=== PATIENT | female | born 1955 | race Caucasian/White ===

== ENCOUNTER 2016-05-14 09:26 | Emergency (ER) | payer BC ==
[2016-05-14 09:37] VITALS: BP 96/56
--- NOTE | 2016-05-14 10:10 | EDM.PDOC ---
ED HPI Trauma - General Chief Complaint: Upper Extremity Injury/Pain Stated Complaint: BROKEN LEFT ARM FELL AT HOME Time Seen by Provider: 05/14/16 10:00 Source: Reports: Patient History Limitations: Reports: No limitations - History of Present Illness INITIAL COMMENTS - FREE TEXT/NARRATIVE: This 60 yo female patient reports to the ED with left wrist pain due to a fall last Thursday (5 days ago). The patient reports she has been icing and immobilizing the area, but has continued to have pain in the left wrist and forearm. The patient has not been seen for these symptoms, but reports she has been having a little more pain over the past 24 hours. The patient reports a history of frequent falls due to orthostatic hypotension. The patient reports she has been seen for this numerous times in the past. At this time, the patient has no additional symptoms or concerns. Symptom Onset Date: 05/09/16 Occurred When: last week Occurred Where: home Method of Injury: fall Severity: moderate Pain/Injury Location: Reports: upper extremity, left Consciousness: Reports: no loss of consciousness Associated Symptoms: Reports: no other symptoms Allergies/ADRs: Allergies erythromycin base [Erythromycin Base] Allergy (Unknown, Verified 05/14/16 09:38) Rash azithromycin [From Zithromax] Allergy (Verified 05/14/16 09:38) Cannot Remember candesartan cilexetil [From Atacand] Allergy (Verified 05/14/16 09:38) Dizziness doxycycline Allergy (Verified 05/14/16 09:38) Cannot Remember heparin Allergy (Verified 05/14/16 09:38) Shortness of Breath levofloxacin [From Levaquin] Allergy (Verified 05/14/16 09:38) Rash developed rash two weeks post ingestion. Penicillins Allergy (Verified 05/14/16 09:38) Rash prochlorperazine Allergy (Verified 05/14/16 09:38) Hallucinations prochlorperazine edisylate [From Compazine] Allergy (Verified 05/14/16 09:38) Hallucinations prochlorperazine maleate [From Compazine] Allergy (Verified 05/14/16 09:38) Hallucinations sumatriptan Allergy (Verified 10/01/15 06:09) Other Home Medications: Ambulatory Orders Insulin Detemir [Levemir] 16 units SUBCUT BID 05/11/13 [Confirmed 05/14/16] Rosuvastatin Calcium [Crestor] 20 mg PO DAILY 05/11/13 [Confirmed 05/14/16] Aspirin [Adult Low Dose Aspirin EC] 81 mg PO DAILY 07/23/13 [Confirmed 05/14/16] Butorphanol [Stadol NS] 1 spray DALE TID PRN 07/24/13 [Confirmed 05/14/16] Folic Acid 1 mg PO DAILY 08/12/15 [Confirmed 05/14/16] Insulin Aspart [Novolog Flexpen] 4 - 6 units SQ TIDMEALS 08/12/15 [Confirmed ] Fludrocortisone [Florinef] 0.2 mg PO BRK 10/01/15 [Confirmed 05/14/16] Metoprolol Tartrate [Lopressor] 12.5 mg PO Q12HR 10/01/15 [Confirmed 05/14/16] Midodrine 10 mg PO TID 10/01/15 [Confirmed 05/14/16] Potassium Chloride [Klor-Con 10] 20 meq PO DAILY PRN 10/01/15 [Confirmed ] Sodium Chloride 1 gm PO TID PRN 10/01/15 [Confirmed 05/14/16] diphenhydrAMINE [Benadryl] 25 mg PO ASDIRECTED PRN 10/01/15 [Confirmed 05/14/16] Albuterol [Proventil HFA] 2 puff INH ASDIRECTED PRN 05/14/16 [Confirmed 05/14/16 ] Cholecalciferol (Vitamin D3) [Vitamin D] 50,000 unit PO WEEKLY 05/14/16 [ Confirmed 05/14/16] Fexofenadine/Pseudoephedrine [Tali-D 24 Hour Tablet] 1 tab PO DAILY PRN 05/14 [Confirmed 05/14/16] Glycerin/Propylene Glycol [Artificial Tears Drops] 1 drop OP DAILY 05/14/16 [ Confirmed 05/14/16] Levothyroxine 12.5 mcg PO ACBREAKFAST 05/14/16 [Confirmed 05/14/16] Promethazine [Phenadoz] 25 mg RECTAL Q6H PRN 05/14/16 [Confirmed 05/14/16] Sennosides/Docusate Sodium [Senna-Docusate Sodium Tablet] 2 tab PO DAILY [Confirmed 05/14/16] traZODone HCl [Trazodone HCl] 100 mg PO BEDTIME 05/14/16 [Confirmed 05/14/16] Past Medical History HEENT History: Reports: Hard of hearing, Impaired vision, Other (see below) Other HEENT History: wears glasses Cardiovascular History: Reports: High cholesterol Other Cardiovascular History: orthostatic hypotension/alternates with hypertension Respiratory History: Reports: Asthma Gastrointestinal History: Reports: Chronic constipation Genitourinary History: Reports: None 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 Musculoskeletal History: Reports: Fracture Neurological History: Reports: Migraines, Neuropathy, diabetic Psychiatric History: Reports: None Endocrine/Metabolic History: Reports: Diabetes, type I, IDDM Hematologic History: Reports: None Immunologic History: Reports: None Oncologic (Cancer) History: Reports: None Dermatologic History: Reports: Psoriasis - Infectious Disease History Infectious Disease History: Reports: Chicken pox - Past Surgical History GI Surgical History: Reports: Appendectomy, Cholecystectomy Female Surgical History: Reports: section, D&C, Hysterectomy Social & Family History - Family History Family Medical History: Noncontributory - Tobacco Use Smoking Status *Q: Never Smoker Second Hand Smoke Exposure: No - Caffeine Use Caffeine Use: Reports: Coffee - Alcohol Use Days Per Week of Alcohol Use: 0 Number of Drinks Per Day: 0 Total Drinks Per Week: 0 - Recreational Drug Use Recreational Drug Use: No - Living Situation & Occupation Living situation: Reports: , with family Review of Systems - Review of Systems Review Of Systems: ROS reveals no pertinent complaints other than HPI. Trauma Exam - Physical Exam Exam: See Below Exam Limited By: No limitations General Appearance: Reports: alert, WD/WN, mild distress Head: Reports: atraumatic, normocephalic Eyes: bilateral eye: EOMI, normal inspection, PERRL Ears: Reports: normal external exam, normal canal, hearing grossly normal, normal TMs Nose: Reports: normal inspection, normal mucousa, no blood Throat/Mouth: Reports: Normal inspection, Normal lips, Normal teeth, Normal gums , Normal oropharynx, Normal voice, No airway compromise Neck: Reports: non-tender, full range of motion, normal alignment, normal inspection Respiratory Exam: Reports: no respiratory distress, lungs clear, normal breath sounds Cardiovascular: Reports: normal peripheral pulses, regular rate, rhythm, no edema, no gallop, no JVD, no murmur, no rub GI/Abdominal: Reports: normal bowel sounds, soft, non tender, no organomegaly, no distention, no abnormal bruit, no mass (Female) Exam: Deferred Rectal (Female) Exam: Deferred Extremities: Reports: pain with movement (left wrist), tenderness (snuff box tenderness left wrist) 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, no motor/sensory deficits, alert , normal mood/affect, oriented x 3 Skin: Reports: Warm/dry - Akash Coma Score Best Eye Response ([place]): (4) open spontaneously Best Verbal Response ([place]): (5) oriented Best Motor Response ([place]): (6) obeys commands [place] Total: 15 Course - Vital Signs Last Recorded V/S: Last Vital Signs Temp 35.3 C 05/14/16 09:32 Pulse 116 H 05/14/16 09:32 Resp 16 05/14/16 09:32 BP 96/56 L 05/14/16 09:32 Pulse Ox 99 05/14/16 09:32 Departure - Departure Time of Disposition: 10:46 Disposition: Home, Self-Care 01 Condition: fair Clinical Impression: Left wrist sprain Qualifiers: Encounter type: initial encounter Qualified Code(s): S63.502A - Unspecified sprain of left wrist, initial encounter Instructions: Wrist Pain, [id number] Forms: ED Department Discharge Care Plan Goals: The patient was advised of the examination and x-ray results during the visit. The patient was encouraged to continue to immobilize her left wrist. If the patient has any additional symptoms or concerns, the patient should follow-up with her primary care facility or return to the emergency department.
== END 2016-05-14 11:00 | disposition home or self-care (01) ==
LOC: DL.ED 09:26
DX: S63.502A Unspecified sprain of left wrist, initial encounter (principal); E78.00 Pure hypercholesterolemia, unspecified; G43.909 Migraine, unspecified, not intractable, without status migrainosus; L40.9 Psoriasis, unspecified; Z88.8 Allergy status to other drugs, medicaments and biological substances; Z79.899 Other long term (current) drug therapy; Z90.49 Acquired absence of other specified parts of digestive tract; W19.XXXA Unspecified fall, initial encounter
CPT/HCPCS: 73090-LT; 73110-LT; 99284

== ENCOUNTER 2017-02-24 10:20 | Emergency (ER) | payer BC ==
--- NOTE | 2017-02-24 10:29 | EDM.PDOC ---
ED HPI GENERAL MEDICAL PROBLEM - General Chief Complaint: Gastrointestinal Problem Stated Complaint: [id number] TYPE ON DIABETIC DEHYDRATION HAS FLU Time Seen by Provider: 02/24/17 10:29 Source of Information: Reports: Patient, Family, Old Records, RN, RN Notes Reviewed History Limitations: Reports: No Limitations - History of Present Illness INITIAL COMMENTS - FREE TEXT/NARRATIVE: Arrives from home by POV with c/o intractable N/V and high blood sugar. Denies pain. Pt feels very weak and believes she may be in DKA. Denies fever or chills. Onset: Today Duration: Constant, Getting Worse Location: Reports: Generalized Severity: Severe Improves with: Reports: None Worsens with: Reports: None Associated Symptoms: Reports: No Other Symptoms Generalized Pain Score (Numeric/FACES): 6 - Related Data Allergies Allergy/AdvReac Type Severity Reaction Status Date / Time erythromycin base Allergy Unknown Rash Verified 02/24/17 10:29 [Erythromycin Base] azithromycin [From Zithromax] Allergy Cannot Verified 02/24/17 10:29 Remember candesartan cilexetil Allergy Dizziness Verified 02/24/17 10:29 [From Atacand] doxycycline Allergy Cannot Verified 02/24/17 10:29 Remember heparin Allergy Shortness Verified 02/24/17 10:29 of Breath levofloxacin [From Levaquin] Allergy Rash Verified 02/24/17 10:29 Penicillins Allergy Rash Verified 02/24/17 10:29 prochlorperazine Allergy Hallucinati Verified 02/24/17 10:29 ons prochlorperazine edisylate Allergy Hallucinati Verified 02/24/17 10:29 [From Compazine] ons prochlorperazine maleate Allergy Hallucinati Verified 02/24/17 10:29 [From Compazine] ons sumatriptan Allergy Other Verified 02/24/17 10:29 Home Meds: Home Meds Insulin Detemir [Levemir] 16 units SUBCUT BID 05/11/13 [History] Rosuvastatin Calcium [Crestor] 20 mg PO DAILY 05/11/13 [History] Aspirin [Adult Low Dose Aspirin EC] 81 mg PO DAILY 07/23/13 [History] Butorphanol [Stadol NS] 1 spray DALE TID PRN 07/24/13 [History] Folic Acid 1 mg PO DAILY 08/12/15 [History] Insulin Aspart [Novolog Flexpen] 4 - 6 units SQ TIDMEALS 08/12/15 [History] Fludrocortisone [Florinef] 0.2 mg PO BRK 10/01/15 [History] Metoprolol Tartrate [Lopressor] 12.5 mg PO Q12HR 10/01/15 [History] Midodrine 10 mg PO TID 10/01/15 [History] Potassium Chloride [Klor-Con 10] 20 meq PO DAILY PRN 10/01/15 [History] Sodium Chloride 1 gm PO TID PRN 10/01/15 [History] diphenhydrAMINE [Benadryl] 25 mg PO ASDIRECTED PRN 10/01/15 [History] Albuterol [Proventil HFA] 2 puff INH ASDIRECTED PRN 05/14/16 [History] Cholecalciferol (Vitamin D3) [Vitamin D] 50,000 unit PO WEEKLY 05/14/16 [History ] Fexofenadine/Pseudoephedrine [Tali-D 24 Hour Tablet] 1 tab PO DAILY PRN 05/14 [History] Glycerin/Propylene Glycol [Artificial Tears Drops] 1 drop OP DAILY 05/14/16 [ History] Levothyroxine 12.5 mcg PO ACBREAKFAST 05/14/16 [History] Promethazine [Phenadoz] 25 mg RECTAL Q6H PRN 05/14/16 [History] Sennosides/Docusate Sodium [Senna-Docusate Sodium Tablet] 2 tab PO DAILY [History] traZODone HCl [Trazodone HCl] 100 mg PO BEDTIME 05/14/16 [History] Past Medical History HEENT History: Reports: Hard of Hearing, Impaired Vision, Other (See Below) Other HEENT History: wears glasses Cardiovascular History: Reports: High Cholesterol Other Cardiovascular History: orthostatic hypotension/alternates with hypertension Respiratory History: Reports: Asthma Gastrointestinal History: Reports: Chronic Constipation Genitourinary History: Reports: None 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 Musculoskeletal History: Reports: Fracture Neurological History: Reports: Migraines, Neuropathy, Diabetic Psychiatric History: Reports: None Endocrine/Metabolic History: Reports: Diabetes, Type I, IDDM Hematologic History: Reports: None Immunologic History: Reports: None Oncologic (Cancer) History: Reports: None Dermatologic History: Reports: Psoriasis - Infectious Disease History Infectious Disease History: Reports: Chicken Pox - Past Surgical History HEENT Surgical History: Reports: Other (See Below) Female Surgical History: Reports: Section, D&C, Hysterectomy Social & Family History - Family History Family Medical History: Noncontributory - Tobacco Use Smoking Status *Q: Never Smoker Second Hand Smoke Exposure: No - Caffeine Use Caffeine Use: Reports: Coffee - Alcohol Use Days Per Week of Alcohol Use: 0 Number of Drinks Per Day: 0 Total Drinks Per Week: 0 - Recreational Drug Use Recreational Drug Use: No - Living Situation & Occupation Living situation: Reports: , with Family ED ROS GENERAL - Review of Systems Review Of Systems: ROS reveals no pertinent complaints other than HPI. ED EXAM GENERAL NO PERIP PULSE - Physical Exam Exam: See Below Exam Limited By: No Limitations General Appearance: Alert, No Apparent Distress, Other (acutely ill appearing) Eye Exam: Bilateral Eye: Normal Inspection Nose: Normal Inspection, Normal Mucosa, No Blood Throat/Mouth: Normal Lips, Normal Oropharynx, Normal Voice, No Airway Compromise , Other (dry oral membranes) Head: Atraumatic, Normocephalic Neck: Normal Inspection, Supple, Non-Tender, Full Range of Motion Respiratory/Chest: No Respiratory Distress, Lungs Clear, Normal Breath Sounds, No Accessory Muscle Use, Chest Non-Tender Cardiovascular: Regular Rate, Rhythm, Tachycardia GI/Abdominal: Normal Bowel Sounds, Soft, Non-Tender, No Distention, No Abnormal Bruit (Female) Exam: Deferred Rectal (Female) Exam: Deferred Back Exam: Normal Inspection Extremities: Normal Inspection, Normal Range of Motion, Non-Tender, Normal Capillary Refill, No Pedal Edema Neurological: Alert, Oriented, CN II-XII Intact, Normal Cognition, No Motor/ Sensory Deficits, Other (generalized weakness) Psychiatric: Normal Affect, Normal Mood Skin Exam: Warm, Dry, Intact, Normal Color, No Rash EKG INTERPRETATION EKG Date: 02/24/17 Time: 11:03 Rhythm: Other (Sinus tach.) Rate (Beats/Min): 114 [place]: Normal P-Wave: Present QRS: Normal ST-T: Other (non-specific T-wave abnormalities) QT: Normal Comparison: No Change Course - Vital Signs Last Recorded V/S: Last Vital Signs Temp 36.3 C 02/24/17 10:33 Pulse 110 H 02/24/17 10:33 Resp 16 02/24/17 10:33 BP 124/49 L 02/24/17 10:33 Pulse Ox 100 02/24/17 10:33 - Orders/Labs/Meds Orders: Active Orders 24 hr Category Date Time Status Blood Glucose Check, Bedside [RC] ONETIME Care 02/24/17 10:48 Active EKG 12 Lead [EKG Documentation Completion] [RC] STAT Care 02/24/17 10:46 Active Peripheral IV Care [RC] . DIRECTED Care 02/24/17 10:47 Active Chest 1V Frontal [CR] Stat Exams 02/24/17 10:46 Taken ABG [BLOOD GAS ARTERIAL] [BG] Stat Lab 02/24/17 10:29 Ordered CBC WITH AUTO DIFF [HEME] Stat Lab 02/24/17 10:52 Results CULTURE BLOOD [BC] Stat Lab 02/24/17 10:48 Ordered CULTURE BLOOD [BC] Stat Lab 02/24/17 10:58 Results CULTURE STREP A CONFIRMATION [RM] Stat Lab 02/24/17 10:42 Results INFLUENZA A+B AG SCREEN [RM] Stat Lab 02/24/17 10:43 Ordered MANUAL DIFFERENTIAL QA/NC [HEME] Stat Lab 02/24/17 10:52 Results STREP SCRN A RAPID W CULT CONF [RM] Stat Lab 02/24/17 10:42 Results UA W/MICROSCOPIC [URIN] Stat Lab 02/24/17 11:05 Results Insulin Regular, Human [HumuLIN R] 100 unit Med 02/24/17 11:30 Active Sodium Chloride 0.9% [Normal Saline] 99 ml IV TITRATE Sodium Chloride 0.9% [Normal Saline] 1,000 ml Med 02/24/17 10:48 Active IV .BOLUS Sodium Chloride 0.9% [Saline Flush] Med 02/24/17 10:46 Active 10 ml FLUSH ASDIRECTED PRN Blood Culture x2 Reflex Set [OM.PC] Stat Oth 02/24/17 10:48 Ordered Peripheral IV Insertion Adult [OM.PC] Stat Oth 02/24/17 10:46 Ordered Medication Orders Sodium Chloride (Normal Saline) 1,000 mls @ 999 mls/hr IV .BOLUS ONE Stop: 02/24/17 11:48 Last Admin: 02/24/17 11:10 Dose: 999 mls/hr Insulin Human Regular 100 unit (/ Sodium Chloride) 100 mls @ 0 mls/hr IV TITRATE COOKIE; 0.1 UNITS/KG/HR PRN Reason: Protocol Sodium Chloride (Saline Flush) 10 ml FLUSH ASDIRECTED PRN PRN Reason: Keep Vein Open Last Admin: 02/24/17 11:10 Dose: 10 ml Labs: Laboratory Tests 02/24/17 02/24/17 02/24/17 Range/Units 10:52 10:52 10:52 WBC 15.5 H (5.0-10.0) 10^3/uL RBC 3.53 L (4.2-5.4) 10^6/uL Hgb 11.4 L (12.0-16.0) g/dL Hct 36.4 L (37.0-47.0) % MCV 103.1 H (80-100) fL MCH 32.3 (27.0-34.0) pg MCHC 31.3 L (33.0-35.0) g/dL Plt Count 274 D (150-450) 10^3/uL Neut % (Auto) 77.1 H (42.2-75.2) % Lymph % (Auto) 12.4 L (20.5-50.1) % [place] % (Auto) 10.1 H (2-8) % Eos % (Auto) 0.2 L (1.0-3.0) % Baso % (Auto) 0.2 (0.0-1.0) % Add Manual Diff Yes Sodium 138 (135-145) mmol/L Potassium 4.0 (3.6-5.0) mmol/L Chloride 99 L (101-111) mmol/L Carbon Dioxide 7.0 L* D (21.0-31.0) mmol/L Anion Gap 36.0 BUN 39 H (7-18) mg/dL Creatinine 1.8 H (0.6-1.3) mg/dL Est Cr Clr Drug Dosing 31.50 mL/min Estimated GFR (MDRD) 29 BUN/Creatinine Ratio 21.66 Glucose 457 H* (74-105) mg/dL POC Glucose (70-105) mg/dl Lactic Acid (0.5-2.2) mmol/L Calcium 8.9 (8.4-10.2) mg/dl Phosphorus 7.8 H (2.5-4.6) mg/dL Magnesium 2.3 (1.8-2.5) mg/dL Total Bilirubin 2.1 H (0.2-1.0) mg/dL AST 43 H (10-42) IU/L ALT 25 (10-60) IU/L Alkaline Phosphatase 105 (42-121) IU/L Troponin I 0.04 H* (0.00-0.02) ng/ml Total Protein 6.6 L (6.7-8.2) g/dl Albumin 3.8 (3.2-5.5) g/dl Globulin 2.8 Albumin/Globulin Ratio 1.36 Amylase 107 H (28-100) U/L Lipase 12 L (22-51) U/L Urine Color (YELLOW) Urine Appearance (CLEAR) Urine pH (5.0-9.0) Ur Specific [place] (1.005-1.030) Urine Protein (NEGATIVE) Urine Glucose (UA) (NEGATIVE) Urine Ketones (NEGATIVE) Urine Occult Blood (NEGATIVE) Urine Nitrite (NEGATIVE) Urine Bilirubin (NEGATIVE) Urine Urobilinogen (0.2-1.0) mg/dL Ur Leukocyte Esterase (NEGATIVE) Ketones Positive 02/24/17 02/24/17 02/24/17 Range/Units 10:52 11:04 11:05 WBC (5.0-10.0) 10^3/uL RBC (4.2-5.4) 10^6/uL Hgb (12.0-16.0) g/dL Hct (37.0-47.0) % MCV (80-100) fL MCH (27.0-34.0) pg MCHC (33.0-35.0) g/dL Plt Count (150-450) 10^3/uL Neut % (Auto) (42.2-75.2) % Lymph % (Auto) (20.5-50.1) % [place] % (Auto) (2-8) % Eos % (Auto) (1.0-3.0) % Baso % (Auto) (0.0-1.0) % Add Manual Diff Sodium (135-145) mmol/L Potassium (3.6-5.0) mmol/L Chloride (101-111) mmol/L Carbon Dioxide (21.0-31.0) mmol/L Anion Gap BUN (7-18) mg/dL Creatinine (0.6-1.3) mg/dL Est Cr Clr Drug Dosing mL/min Estimated GFR (MDRD) BUN/Creatinine Ratio Glucose (74-105) mg/dL POC Glucose 363 H (70-105) mg/dl Lactic Acid 5.9 H (0.5-2.2) mmol/L Calcium (8.4-10.2) mg/dl Phosphorus (2.5-4.6) mg/dL Magnesium (1.8-2.5) mg/dL Total Bilirubin (0.2-1.0) mg/dL AST (10-42) IU/L ALT (10-60) IU/L Alkaline Phosphatase (42-121) IU/L Troponin I (0.00-0.02) ng/ml Total Protein (6.7-8.2) g/dl Albumin (3.2-5.5) g/dl Globulin Albumin/Globulin Ratio Amylase (28-100) U/L Lipase (22-51) U/L Urine Color Yellow (YELLOW) Urine Appearance Turbid (CLEAR) Urine pH 5.5 (5.0-9.0) Ur Specific [place] >= 1.030 (1.005-1.030) Urine Protein 100 H (NEGATIVE) Urine Glucose (UA) 250 H (NEGATIVE) Urine Ketones 80 H (NEGATIVE) Urine Occult Blood Moderate H (NEGATIVE) Urine Nitrite Negative (NEGATIVE) Urine Bilirubin Negative (NEGATIVE) Urine Urobilinogen 0.2 (0.2-1.0) mg/dL Ur Leukocyte Esterase Negative (NEGATIVE) Ketones Meds: Medications Generic Name Dose Route Start Last Admin Trade Name Freq PRN Reason Stop Dose Admin Sodium Chloride 1,000 mls @ 999 mls/hr 02/24/17 10:48 02/24/17 11:10 Normal Saline IV 02/24/17 11:48 999 mls/hr .BOLUS ONE Administration Insulin Human Regular 100 unit 100 mls @ 0 mls/hr 02/24/17 11:30 / Sodium Chloride IV TITRATE COOKIE Protocol 0.1 UNITS/KG/HR Sodium Chloride 10 ml 02/24/17 10:46 02/24/17 11:10 Saline Flush FLUSH 10 ml ASDIRECTED PRN Administration Keep Vein Open Discontinued Medications Generic Name Dose Route Start Last Admin Trade Name Freq PRN Reason Stop Dose Admin Insulin Human Regular 6 unit 02/24/17 11:23 02/24/17 11:34 Humulin R IV 02/24/17 11:24 6 unit ONETIME ONE Administration Protocol Ondansetron HCl 4 mg 02/24/17 10:48 02/24/17 11:10 Zofran IV 02/24/17 10:49 4 mg ONETIME ONE Administration Ondansetron HCl 4 mg 02/24/17 11:24 02/24/17 11:34 Zofran IV 02/24/17 11:25 4 mg ONETIME ONE Administration - Radiology Interpretation Free Text/Narrative:: CXR: no acute process, see Rad. report. Departure - Departure Time of Disposition: 11:39 Disposition: DC/Tfer to Acute Hospital 02 Condition: Critical Clinical Impression: Dehydration, Vomiting DKA, type 1 Qualifiers: Diabetes mellitus complication detail: without coma Qualified Code(s): E10.10 - Type 1 diabetes mellitus with ketoacidosis without coma - Discharge Information Forms: ED Department Discharge, Interfacility Transfer EMTALA - My Orders Last 24 Hours: My Active Orders 02/24/17 10:29 ABG [BLOOD GAS ARTERIAL] [BG] Stat 02/24/17 10:42 CULTURE STREP A CONFIRMATION [RM] Stat STREP SCRN A RAPID W CULT CONF [RM] Stat 02/24/17 10:43 INFLUENZA A+B AG SCREEN [RM] Stat 02/24/17 10:46 EKG 12 Lead [EKG Documentation Completion] [RC] STAT Chest 1V Frontal [CR] Stat Sodium Chloride 0.9% [Saline Flush] 10 ml FLUSH ASDIRECTED PRN Peripheral IV Insertion Adult [OM.PC] Stat 02/24/17 10:47 Peripheral IV Care [RC] . DIRECTED 02/24/17 10:48 Blood Glucose Check, Bedside [RC] ONETIME CULTURE BLOOD [BC] Stat Sodium Chloride 0.9% [Normal Saline] 1,000 ml IV .BOLUS Blood Culture x2 Reflex Set [OM.PC] Stat 02/24/17 10:52 CBC WITH AUTO DIFF [HEME] Stat MANUAL DIFFERENTIAL QA/NC [HEME] Stat 02/24/17 10:58 CULTURE BLOOD [BC] Stat 02/24/17 11:05 UA W/MICROSCOPIC [URIN] Stat 02/24/17 11:30 Insulin Regular, Human [HumuLIN R] 100 unit Sodium Chloride 0.9% [Normal Saline] 99 ml IV TITRATE - Assessment/Plan Last 24 Hours: My Active Orders 02/24/17 10:29 ABG [BLOOD GAS ARTERIAL] [BG] Stat 02/24/17 10:42 CULTURE STREP A CONFIRMATION [RM] Stat STREP SCRN A RAPID W CULT CONF [RM] Stat 02/24/17 10:43 INFLUENZA A+B AG SCREEN [RM] Stat 02/24/17 10:46 EKG 12 Lead [EKG Documentation Completion] [RC] STAT Chest 1V Frontal [CR] Stat Sodium Chloride 0.9% [Saline Flush] 10 ml FLUSH ASDIRECTED PRN Peripheral IV Insertion Adult [OM.PC] Stat 02/24/17 10:47 Peripheral IV Care [RC] . DIRECTED 02/24/17 10:48 Blood Glucose Check, Bedside [RC] ONETIME CULTURE BLOOD [BC] Stat Sodium Chloride 0.9% [Normal Saline] 1,000 ml IV .BOLUS Blood Culture x2 Reflex Set [OM.PC] Stat 02/24/17 10:52 CBC WITH AUTO DIFF [HEME] Stat MANUAL DIFFERENTIAL QA/NC [HEME] Stat 02/24/17 10:58 CULTURE BLOOD [BC] Stat 02/24/17 11:05 UA W/MICROSCOPIC [URIN] Stat 02/24/17 11:30 Insulin Regular, Human [HumuLIN R] 100 unit Sodium Chloride 0.9% [Normal Saline] 99 ml IV TITRATE
[2017-02-24 10:34] VITALS: BP 124/49
[2017-02-24] MEDS ORDERED: Sodium Chloride 0.9% 10 ML Syringe FLUSH PRN (10:46)
[2017-02-24] MEDS ORDERED: Ondansetron 4 MG/2 ML SDV IV ONE ×2 (10:48→11:24)
[2017-02-24] MEDS ORDERED: Sodium Chloride 0.9% 1,000 ML IV ONE (10:48)
[2017-02-24] MEDS ORDERED: Insulin Regular, Human 100 Units/ML 3 ML Vial IV ONE (11:23)
[2017-02-24 11:29] LABS: CHLORIDE,CL 99 mmol/L (101-111); SODIUM,NA 138 mmol/L (135-145)
--- NOTE | 2017-03-02 18:28 | EKG ---
02/24/2017 - [facility] - FINDINGS: This 12-lead EKG shows a sinus tachycardia with a ventricular rate of 114. Normal axis. Non-specific T-wave abnormalities in the lateral leads, possibly rate related. No acute ST-segment or T-wave changes. [facility] /[id number] MTDD
== END 2017-02-24 12:30 ==
LOC: DL.ED 10:20
DX: E86.0 Dehydration (principal); E10.10 Type 1 diabetes mellitus with ketoacidosis without coma; E10.40 Type 1 diabetes mellitus with diabetic neuropathy, unspecified; I10 Essential (primary) hypertension; E78.00 Pure hypercholesterolemia, unspecified; Z88.1 Allergy status to other antibiotic agents; Z88.0 Allergy status to penicillin; Z88.8 Allergy status to other drugs, medicaments and biological substances; Z79.4 Long term (current) use of insulin; Z79.899 Other long term (current) drug therapy
CPT/HCPCS: 36415; 71010; 80053; 81001; 82009; 82150; 82962; 83605; 83690; 83735; 84100; 84484; 85025; 87040; 87081; 87430; 87804; 93005; 96361; 96365; 96375; 96376; 99285; J1815; J2405; J7030; J7050

== ENCOUNTER 2017-03-09 09:26 | Inpatient (IN) | payer BC ==
[2017-03-09] MEDS ORDERED: FEXOFENADINE PO PRN (16:20)
[2017-03-09] MEDS ORDERED: diphenhydrAMINE 25 MG Tab PO PRN (16:20)
[2017-03-09] MEDS ORDERED: PSEUDOEPHEDRINE PO PRN (16:20)
[2017-03-09] MEDS ORDERED: Promethazine 25 MG Supp RECTAL PRN (16:20)
--- NOTE | 2017-03-09 16:44 | PCM.HP ---
H&P History of Present Illness - General Date of Service: 03/09/17 Admit Problem/Dx: Admission Diagnosis/Problem Admission Diagnosis/Problem Weakness Source of Information: Patient History Limitations: Reports: No Limitations - History of Present Illness Improves with: Reports: None Worsens with: Reports: None Associated Symptoms: Reports: No Other Symptoms - Related Data Allergies/Adverse Reactions: Allergies Allergy/AdvReac Type Severity Reaction Status Date / Time erythromycin base Allergy Unknown Rash Verified 03/09/17 16:00 [Erythromycin Base] azithromycin [From Zithromax] Allergy Cannot Verified 03/09/17 16:00 Remember candesartan cilexetil Allergy Dizziness Verified 03/09/17 16:00 [From [place]] cat dander Allergy Swelling Verified 03/09/17 16:00 doxycycline Allergy Cannot Verified 03/09/17 16:00 Remember heparin Allergy Shortness Verified 03/09/17 16:00 of Breath levofloxacin [From Levaquin] Allergy Rash Verified 03/09/17 16:00 Penicillins Allergy Rash Verified 03/09/17 16:00 prochlorperazine Allergy Hallucinati Verified 03/09/17 16:00 ons prochlorperazine edisylate Allergy Hallucinati Verified 03/09/17 16:00 [From Compazine] ons prochlorperazine maleate Allergy Hallucinati Verified 03/09/17 16:00 [From Compazine] ons sumatriptan Allergy Other Verified 03/09/17 16:00 Home Medications: Home Meds Insulin Detemir [Levemir] 10 units SUBCUT TID 05/11/13 [History] Rosuvastatin Calcium [Crestor] 20 mg PO DAILY 05/11/13 [History] Aspirin [Adult Low Dose Aspirin EC] 81 mg PO DAILY 07/23/13 [History] Butorphanol [Stadol NS] 1 spray DALE TID PRN 07/24/13 [History] Folic Acid 1 mg PO DAILY 08/12/15 [History] Insulin Aspart [Novolog Flexpen] 6 units SQ TIDMEALS 08/12/15 [History] Fludrocortisone [Florinef] 0.2 mg PO BRK 10/01/15 [History] Midodrine 2.5 mg PO TID 10/01/15 [History] diphenhydrAMINE [Benadryl] 25 mg PO ASDIRECTED PRN 10/01/15 [History] Fexofenadine/Pseudoephedrine [Tali-D 24 Hour Tablet] 1 tab PO DAILY PRN 05/14 [History] Glycerin/Propylene Glycol [Artificial Tears Drops] 1 drop OP DAILY 05/14/16 [ History] Levothyroxine 25 mcg PO ACBREAKFAST 05/14/16 [History] Promethazine [Phenadoz] 25 mg RECTAL Q6H PRN 05/14/16 [History] Calcitriol 0.25 mcg PO DAILY 03/09/17 [History] Gabapentin [Neurontin] 300 mg PO TID 03/09/17 [History] Non-Formulary Medication [NF Drug] 1 drop EYEBOTH DAILY 03/09/17 [History] Non-Formulary Medication [NF Drug] 2 tab PO DAILY 03/09/17 [History] Ondansetron [Zofran] 4 mg PO Q8H PRN 03/09/17 [History] Past Medical History HEENT History: Reports: Hard of Hearing, Impaired Vision, Other (See Below) Other HEENT History: wears glasses Cardiovascular History: Reports: High Cholesterol Other Cardiovascular History: orthostatic hypotension/alternates with hypertension Respiratory History: Reports: Asthma Gastrointestinal History: Reports: Chronic Constipation Genitourinary History: Reports: None 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: 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 Uterine Bleeding Musculoskeletal History: Reports: Fracture Neurological History: Reports: Migraines, Neuropathy, Diabetic Psychiatric History: Reports: None Endocrine/Metabolic History: Reports: Diabetes, Type I, IDDM Hematologic History: Reports: None Immunologic History: Reports: None Oncologic (Cancer) History: Reports: None Dermatologic History: Reports: Psoriasis - Infectious Disease History Infectious Disease History: Reports: Chicken Pox - Past Surgical History HEENT Surgical History: Reports: Other (See Below) Female Surgical History: Reports: Section, D&C, Hysterectomy Social & Family History - Family History Family Medical History: Noncontributory - Tobacco Use Smoking Status *Q: Never Smoker Second Hand Smoke Exposure: No - Caffeine Use Caffeine Use: Reports: Coffee - Alcohol Use Days Per Week of Alcohol Use: 0 Number of Drinks Per Day: 0 Total Drinks Per Week: 0 - Recreational Drug Use Recreational Drug Use: No - Living Situation & Occupation Living situation: Reports: , with Family H&P Review of Systems - Review of Systems: Review Of Systems: See Below General: Reports: No Symptoms HEENT: Reports: No Symptoms Pulmonary: Reports: No Symptoms Cardiovascular: Reports: No Symptoms Gastrointestinal: Reports: No Symptoms Genitourinary: Reports: No Symptoms Musculoskeletal: Reports: No Symptoms Skin: Reports: No Symptoms Psychiatric: Reports: No Symptoms Neurological: Reports: No Symptoms Hematologic/Lymphatic: Reports: No Symptoms Immunologic: Reports: No Symptoms Exam - Exam Exam: See Below - Vital Signs Vital Signs: Last Vital Signs Temp 98.3 F 03/09/17 15:40 Pulse 78 03/09/17 15:40 Resp 20 03/09/17 15:40 BP 153/79 H 03/09/17 15:40 Pulse Ox 99 03/09/17 15:40 - Exam General: Alert, Oriented, 4 HEENT: PERRLA, Hearing Intact, Mucosa Moist & [place], Nares Patent, Normal Nasal Septum, Posterior Pharynx Clear, Conjunctiva Clear, EOMI, EACs Clear, TMs Clear Neck: Supple, Trachea Midline, 2 Lungs: Clear to Auscultation, Normal Respiratory Effort Cardiovascular: Regular Rate, Regular Rhythm GI/Abdominal Exam: Normal Bowel Sounds, Soft, Non-Tender, No Organomegaly, No Distention, No Abnormal Bruit, No Mass, Pelvis Stable (Female) Exam: Normal External Exam, Normal Speculum Exam, Normal Bimanual Exam Rectal (Female) Exam: Normal Exam, Normal Rectal Tone Back Exam: Normal Inspection, Full Range of Motion, NT Extremities: Normal Inspection, Normal Range of Motion, Non-Tender, No Pedal Edema, Normal Capillary Refill Skin: Warm, Dry, Intact Neurological: Cranial Nerves Intact, Reflexes Equal Bilateral Neuro Extensive - Mental Status: Alert, Oriented x3, Normal Mood/Affect, Normal Cognition, Other (unsteady gait) Neuro Extensive - Motor, Sensory, Reflexes: CN II-XII Intact, Normal Gait, Normal Reflexes Psychiatric: Alert, Normal Affect, Normal Mood *Q Meaningful Use (ADM) - VTE *Q VTE Criteria *Q: - Stroke *Q Stroke Criteria *Q: - AMI *Q AMI Criteria *Q: - Problem List (1) Diabetes SNOMED Code(s): 86496415 ICD Code: E11.9 - TYPE 2 DIABETES MELLITUS WITHOUT COMPLICATIONS Status: Acute Priority: Medium Current Visit: No Problem List Initiated/Reviewed/Updated: Yes Orders Last 24hrs: Active Orders 24 hr Category Date Time Status Patient Status [ADT] Routine ADT 03/09/17 16:07 Ordered Bedrest Bathroom Privileges [RC] ASDIRECTED Care 03/09/17 16:06 Ordered Up With Assistance [RC] ASDIRECTED Care 03/09/17 16:06 Ordered Up to Chair [RC] ASDIRECTED Care 03/09/17 16:06 Ordered VTE/DVT Education [RC] PER UNIT ROUTINE Care 03/09/17 16:17 Ordered Vital Signs [RC] Q4H Care 03/09/17 16:07 Ordered BASIC METABOLIC PANEL,BMP [CHEM] Routine Lab 03/09/17 16:15 Ordered Acetaminophen [Tylenol] Med 03/09/17 16:15 Ordered 650 mg PO Q4H PRN Aspirin [Halfprin] Med 03/10/17 09:00 Ordered 81 mg PO DAILY Butorphanol [Stadol NS] Med 03/09/17 16:20 Ordered 1 spray DALE TID PRN Calcitriol [Rocaltrol] Med 03/10/17 09:00 Ordered 0.25 mcg PO DAILY Fexofenadine/Pseudoephedrine [Tali-D 24 Hour Tablet] Med 03/09/17 16:20 Ordered 1 tab PO DAILY PRN Fludrocortisone [Florinef] Med 03/10/17 08:00 Ordered 0.2 mg PO BRK Folic Acid Med 03/10/17 09:00 Ordered 1 mg PO DAILY Gabapentin [Neurontin] Med 03/09/17 21:00 Ordered 300 mg PO TID Glycerin/Propylene Glycol [Artificial Tears Drops] Med 03/10/17 09:00 Ordered 1 drop OP DAILY Heparin Sodium Med 03/09/17 16:15 Ordered 5,000 units SUBCUT Q12H Insulin Aspart [NovoLOG] Med 03/09/17 18:00 Ordered 6 unit SUBCUT TIDMEALS Insulin Detemir [Levemir] Med 03/09/17 21:00 Ordered 10 unit SUBCUT TID Levothyroxine Med 03/10/17 06:00 Ordered 25 mcg PO ACBREAKFAST Midodrine [Midodrine] Med 03/09/17 21:00 Ordered 2.5 mg PO TID Non-Formulary Medication [NF Drug] Med 03/10/17 09:00 Ordered 1 drop EYEBOTH DAILY Non-Formulary Medication [NF Drug] Med 03/10/17 09:00 Ordered 2 tab PO DAILY Ondansetron Med 03/09/17 16:20 Ordered 4 mg PO Q8H PRN Promethazine [Phenadoz] Med 03/09/17 16:20 Ordered 25 mg RECTAL Q6H PRN Rosuvastatin Calcium [Crestor] Med 03/10/17 09:00 Ordered 20 mg PO DAILY diphenhydrAMINE [Benadryl] Med 03/09/17 16:20 Ordered 25 mg PO ASDIRECTED PRN DVT/VTE Prophylaxis Reflex [OM.PC] Routine Oth 03/09/17 16:15 Ordered Resuscitation Status Routine Resus Stat 03/09/17 16:06 Ordered Medication Orders Acetaminophen (Tylenol) 650 mg PO Q4H PRN PRN Reason: Pain (mild 1-3 )/fever Aspirin (Halfprin) 81 mg PO DAILY [facility] Butorphanol Tartrate (Stadol Ns) 0 mg DALE TID PRN PRN Reason: Headache Calcitriol (Rocaltrol) 0.25 mcg PO DAILY [facility] Diphenhydramine HCl (Benadryl) 25 mg PO ASDIRECTED PRN PRN Reason: Itching Fludrocortisone Acetate (Florinef) 0.2 mg PO BRK [facility] Folic Acid (Folic Acid) 1 mg PO DAILY [facility] Gabapentin (Neurontin) 300 mg PO TID [facility] Heparin Sodium (Porcine) (Heparin Sodium) 5,000 units SUBCUT Q12H [facility] Insulin Aspart (Novolog) 6 unit SUBCUT TIDMEALS [facility] Insulin Detemir (Levemir) 10 unit SUBCUT TID [facility] Levothyroxine Sodium (Levothyroxine) 25 mcg PO ACBREAKFAST [facility] Non-Formulary Medication (Fexofenadine/Pseudoephedrine [Tali-D 24 Hour Tablet ]) 1 tab PO DAILY PRN PRN Reason: Congestion Non-Formulary Medication (Glycerin/Propylene Glycol [Artificial Tears Drops]) 1 drop OP DAILY [facility] Non-Formulary Medication (Midodrine [Midodrine]) 2.5 mg PO TID [facility] Non-Formulary Medication (Nf Drug) each EYEBOTH DAILY [facility] Non-Formulary Medication (Nf Drug) each PO DAILY [facility] Non-Formulary Medication (Ondansetron) 4 mg PO Q8H PRN PRN Reason: Nausea Non-Formulary Medication (Rosuvastatin Calcium [Crestor]) 20 mg PO DAILY [facility] Promethazine HCl (Phenadoz) 25 mg RECTAL Q6H PRN PRN Reason: Constipation Assessment/Plan Comment:: #Type 1 diabetes mellitus -Uncontrolled -She continues to have fluctuation of blood sugars. -FSG 300 -IVF -Will give regular insulune 7 units stat -Lispro 5 units qmeal -Levemir 10 units bid -Accucheck 4x daily #Hypertension. -BP borderline low -She is currently on fludrocortisone and Midodrine. -Will continue for now #Hypothyroidism. - On levothyroxine. -Will continue #Diabetic Gastroparesis -On oral Reglan. -Will continue #Diabetic ketoacidosis. -Resolved #Generalized debility. -Continue physical therapy and occupational therapy. Had a detailed discussion with the patient and other care givers involved in her care.
[2017-03-09] MEDS ORDERED: Insulin Regular, Human 100 Units/ML 3 ML Vial IV ONE ×2 (16:46→18:39)
[2017-03-09] MEDS: BUTORPHANOL NAS PRN ×2 (17:23→21:54)
[2017-03-09] MEDS: Insulin Aspart 100 Units/ML 3 ML Pen SUBCUT SCH (17:25)
[2017-03-09] MEDS: Sodium Chloride 0.9% 1,000 ML IV SCH (17:26)
[2017-03-09 17:35] LABS: ANION GAP 14.7; CHLORIDE,CL 98 mmol/L (101-111); SODIUM,NA 134 mmol/L (135-145)
[2017-03-09] MEDS: Ondansetron 4 MG Tab.DIS PO PRN (19:20)
[2017-03-09] MEDS: Midodrine 2.5 MG Tab PO SCH (20:46)
[2017-03-09] MEDS: Gabapentin 300 MG Cap PO SCH (20:46)
[2017-03-09] MEDS ORDERED: Insulin Detemir 100 Units/ML 3 ML Pen SUBCUT SCH (21:00)
[2017-03-09] MEDS ORDERED: Heparin Sodium 5,000 Units/ML Vial SUBCUT SCH (21:00)
[2017-03-09] MEDS: Insulin Detemir 100 Units/ML 3 ML Pen SUBCUT SCH (21:14)
[2017-03-10] MEDS: Acetaminophen 325 MG Tab PO PRN (03:32)
[2017-03-10] MEDS: Sodium Chloride 0.9% 1,000 ML IV SCH ×2 (03:35→13:37)
[2017-03-10] MEDS: Levothyroxine 25 MCG Tab PO SCH (05:54)
[2017-03-10] MEDS: Ondansetron 4 MG Tab.DIS PO PRN ×2 (06:12→21:02)
[2017-03-10] MEDS: BUTORPHANOL NAS PRN ×2 (07:30→16:21)
[2017-03-10] MEDS ORDERED: Non-Formulary Medication 1 Each EYEBOTH SCH (09:00)
[2017-03-10] MEDS: SENNOSIDES PO SCH (09:15)
[2017-03-10] MEDS: Folic Acid 1 MG Tab PO SCH (09:15)
[2017-03-10] MEDS: Fludrocortisone 0.1 MG Tab PO SCH (09:15)
[2017-03-10] MEDS: Rosuvastatin 10 MG Tab PO SCH (09:15)
[2017-03-10] MEDS: Gabapentin 300 MG Cap PO SCH ×3 (09:15→20:57)
[2017-03-10] MEDS: DOCUSATE SODIUM PO SCH (09:15)
[2017-03-10] MEDS: BLINK TEARS EYEBOTH SCH (09:15)
[2017-03-10] MEDS: Insulin Aspart 100 Units/ML 3 ML Pen SUBCUT SCH ×3 (09:15→17:21)
[2017-03-10] MEDS: Aspirin 81 MG Tab.EC PO SCH (09:15)
[2017-03-10] MEDS: Midodrine 2.5 MG Tab PO SCH ×3 (09:15→20:57)
[2017-03-10] MEDS: Calcitriol 0.25 MCG Cap PO SCH (09:15)
[2017-03-10] MEDS: Insulin Detemir 100 Units/ML 3 ML Pen SUBCUT SCH ×2 (09:16→21:22)
[2017-03-10] MEDS: Clopidogrel 75 MG Tab PO SCH (14:14)
[2017-03-11] MEDS: BUTORPHANOL NAS PRN ×3 (00:24→18:09)
[2017-03-11] MEDS: Sodium Chloride 0.9% 1,000 ML IV SCH ×2 (00:27→00:28)
[2017-03-11] MEDS: Levothyroxine 25 MCG Tab PO SCH (06:01)
[2017-03-11] MEDS: Aspirin 81 MG Tab.EC PO SCH (09:10)
[2017-03-11] MEDS: Gabapentin 300 MG Cap PO SCH ×3 (09:10→21:21)
[2017-03-11] MEDS: Rosuvastatin 10 MG Tab PO SCH (09:11)
[2017-03-11] MEDS: SENNOSIDES PO SCH (09:11)
[2017-03-11] MEDS: Insulin Detemir 100 Units/ML 3 ML Pen SUBCUT SCH ×2 (09:11→21:21)
[2017-03-11] MEDS: Fludrocortisone 0.1 MG Tab PO SCH (09:11)
[2017-03-11] MEDS: BLINK TEARS EYEBOTH SCH (09:11)
[2017-03-11] MEDS: DOCUSATE SODIUM PO SCH (09:11)
[2017-03-11] MEDS: Midodrine 2.5 MG Tab PO SCH ×3 (09:11→21:21)
[2017-03-11] MEDS: Calcitriol 0.25 MCG Cap PO SCH (09:11)
[2017-03-11] MEDS: Folic Acid 1 MG Tab PO SCH (09:11)
[2017-03-11] MEDS: Clopidogrel 75 MG Tab PO SCH (09:11)
[2017-03-11] MEDS: Insulin Aspart 100 Units/ML 3 ML Pen SUBCUT SCH ×3 (09:12→17:28)
[2017-03-11] MEDS: Sodium Chloride 0.9% 10 ML Syringe FLUSH SCH (21:22)
[2017-03-12] MEDS: Acetaminophen 325 MG Tab PO PRN ×2 (03:24→09:59)
[2017-03-12] MEDS: Ondansetron 4 MG Tab.DIS PO PRN ×2 (04:24→20:12)
[2017-03-12] MEDS: BUTORPHANOL NAS PRN ×3 (04:24→21:10)
[2017-03-12] MEDS: Levothyroxine 25 MCG Tab PO SCH (05:11)
[2017-03-12] MEDS: DOCUSATE SODIUM PO SCH (08:26)
[2017-03-12] MEDS: SENNOSIDES PO SCH (08:26)
[2017-03-12] MEDS: Aspirin 81 MG Tab.EC PO SCH (08:27)
[2017-03-12] MEDS: Clopidogrel 75 MG Tab PO SCH (08:27)
[2017-03-12] MEDS: Rosuvastatin 10 MG Tab PO SCH (08:27)
[2017-03-12] MEDS: Insulin Aspart 100 Units/ML 3 ML Pen SUBCUT SCH ×3 (08:27→18:14)
[2017-03-12] MEDS: Calcitriol 0.25 MCG Cap PO SCH (08:27)
[2017-03-12] MEDS: Midodrine 2.5 MG Tab PO SCH ×3 (08:27→21:08)
[2017-03-12] MEDS: Gabapentin 300 MG Cap PO SCH ×3 (08:27→21:08)
[2017-03-12] MEDS: Folic Acid 1 MG Tab PO SCH (08:27)
[2017-03-12] MEDS: Fludrocortisone 0.1 MG Tab PO SCH (08:27)
[2017-03-12] MEDS: Sodium Chloride 0.9% 10 ML Syringe FLUSH SCH ×2 (08:28→21:11)
[2017-03-12] MEDS: Insulin Detemir 100 Units/ML 3 ML Pen SUBCUT SCH ×2 (08:28→21:12)
[2017-03-12] MEDS: BLINK TEARS EYEBOTH SCH (08:29)
[2017-03-12] MEDS: DULoxetine 30 MG Cap PO SCH (12:22)
[2017-03-12] MEDS: Acetaminophen 325 MG Tab PO SCH ×2 (14:52→21:09)
[2017-03-12] MEDS: Ibuprofen 400 MG Tab PO PRN (17:19)
[2017-03-13] MEDS: Levothyroxine 25 MCG Tab PO SCH (05:32)
[2017-03-13] MEDS: BUTORPHANOL NAS PRN ×3 (05:33→22:29)
[2017-03-13] MEDS: Gabapentin 300 MG Cap PO SCH ×3 (09:22→20:50)
[2017-03-13] MEDS: Fludrocortisone 0.1 MG Tab PO SCH (09:22)
[2017-03-13] MEDS: Clopidogrel 75 MG Tab PO SCH (09:22)
[2017-03-13] MEDS: Folic Acid 1 MG Tab PO SCH (09:22)
[2017-03-13] MEDS: Calcitriol 0.25 MCG Cap PO SCH (09:22)
[2017-03-13] MEDS: DULoxetine 30 MG Cap PO SCH (09:22)
[2017-03-13] MEDS: SENNOSIDES PO SCH (09:22)
[2017-03-13] MEDS: Midodrine 2.5 MG Tab PO SCH ×3 (09:22→20:49)
[2017-03-13] MEDS: DOCUSATE SODIUM PO SCH (09:22)
[2017-03-13] MEDS: Rosuvastatin 10 MG Tab PO SCH (09:22)
[2017-03-13] MEDS: Aspirin 81 MG Tab.EC PO SCH (09:23)
[2017-03-13] MEDS: Acetaminophen 325 MG Tab PO SCH ×3 (09:23→20:50)
[2017-03-13] MEDS: Sodium Chloride 0.9% 10 ML Syringe FLUSH SCH ×2 (09:23→20:50)
[2017-03-13] MEDS: BLINK TEARS EYEBOTH SCH (09:23)
[2017-03-13] MEDS: Insulin Detemir 100 Units/ML 3 ML Pen SUBCUT SCH (09:24)
[2017-03-13] MEDS: Insulin Aspart 100 Units/ML 3 ML Pen SUBCUT SCH ×5 (09:35→17:50)
[2017-03-13] MEDS ORDERED: Insulin Aspart 100 Units/ML 3 ML Pen SUBCUT ONE (09:36)
[2017-03-13 09:39] LABS: ANION GAP 16.1
[2017-03-13] MEDS: Ondansetron 4 MG Tab.DIS PO PRN ×2 (09:44→21:04)
[2017-03-13] MEDS: Ibuprofen 400 MG Tab PO PRN ×2 (11:26→16:59)
[2017-03-13] MEDS ORDERED: Potassium Chloride 10 MEQ Tab.ER PO ONE (16:39)
[2017-03-13] MEDS ORDERED: 50% Dextrose in Water 50 ML Syringe ONE (19:55)
[2017-03-14] MEDS: Ibuprofen 400 MG Tab PO PRN ×2 (01:58→11:06)
[2017-03-14] MEDS: Levothyroxine 25 MCG Tab PO SCH (05:50)
[2017-03-14 06:58] LABS: ANION GAP 13.4; CHLORIDE,CL 97 mmol/L (101-111); SODIUM,NA 136 mmol/L (135-145)
[2017-03-14] MEDS: BUTORPHANOL NAS PRN ×2 (07:44→17:20)
[2017-03-14] MEDS: Ondansetron 4 MG Tab.DIS PO PRN ×2 (08:39→17:20)
[2017-03-14] MEDS: Fludrocortisone 0.1 MG Tab PO SCH (08:39)
[2017-03-14] MEDS: Insulin Aspart 100 Units/ML 3 ML Pen SUBCUT SCH ×4 (08:42→17:42)
[2017-03-14] MEDS ORDERED: Insulin Detemir 100 Units/ML 3 ML Pen SUBCUT SCH (09:00)
[2017-03-14] MEDS: Gabapentin 300 MG Cap PO SCH ×3 (09:37→20:18)
[2017-03-14] MEDS: Calcitriol 0.25 MCG Cap PO SCH (09:37)
[2017-03-14] MEDS: Folic Acid 1 MG Tab PO SCH (09:37)
[2017-03-14] MEDS: DULoxetine 30 MG Cap PO SCH (09:38)
[2017-03-14] MEDS: Aspirin 81 MG Tab.EC PO SCH (09:38)
[2017-03-14] MEDS: DOCUSATE SODIUM PO SCH (09:38)
[2017-03-14] MEDS: Midodrine 2.5 MG Tab PO SCH ×3 (09:38→20:18)
[2017-03-14] MEDS: SENNOSIDES PO SCH (09:38)
[2017-03-14] MEDS: Clopidogrel 75 MG Tab PO SCH (09:38)
[2017-03-14] MEDS: Acetaminophen 325 MG Tab PO SCH ×3 (09:39→20:19)
[2017-03-14] MEDS: Rosuvastatin 10 MG Tab PO SCH (09:39)
[2017-03-14] MEDS: BLINK TEARS EYEBOTH SCH (09:41)
[2017-03-14] MEDS: Sodium Chloride 0.9% 10 ML Syringe FLUSH SCH ×2 (09:47→20:18)
[2017-03-14] MEDS ORDERED: Benzocaine/Docusate Sodium 20-283 MG/5 ML Enema RECTAL PRN (10:10)
[2017-03-14] MEDS ORDERED: Potassium Chloride 10 MEQ Tab.ER PO ONE (13:20)
[2017-03-14] MEDS ORDERED: Insulin Aspart 100 Units/ML 3 ML Pen SUBCUT ONE ×2 (13:39→13:44)
--- NOTE | 2017-03-14 13:44 | PCM.PN ---
- General Info Date of Service: 03/14/17 Admission Dx/Problem (Free Text): Admission Diagnosis/Problem Admission Diagnosis/Problem Weakness Subjective Update: The patient continues to have a variable blood sugars. Going from low on the 2203 100s. Continues to have headache and neck ache. This has been chronic. Tylenol is not helping, did not tolerate Motrin about because of nausea and abdominal discomfort - Review of Systems General: Reports: Weakness. Denies: Fever HEENT: Reports: Headaches Pulmonary: Denies: Shortness of Breath Cardiovascular: Denies: Chest Pain Gastrointestinal: Denies: Abdominal Pain Neurological: Denies: Confusion - Patient Data Vitals - Most Recent: Last Vital Signs Temp 36.0 C 03/14/17 07:55 Pulse 78 03/13/17 15:02 Resp 18 03/14/17 07:55 BP 144/62 H 03/14/17 07:55 Pulse Ox 95 03/14/17 07:55 Orthostatic Blood Pressure [ 80/40 Standing] Orthostatic Blood Pressure [ 111/58 Sitting] Weight - Most Recent: 66.678 kg I&O - Last 24 Hours: Intake & Output 03/13/17 03/14/17 03/14/17 22:59 06:59 14:59 Intake Total 400 340 Balance 400 340 Lab Results Last 24 Hours: Laboratory Results - last 24 hr 03/13/17 03/13/17 03/13/17 Range/Units 17:08 19:52 20:19 Sodium (135-145) mmol/L Potassium (3.6-5.0) mmol/L Chloride (101-111) mmol/L Carbon Dioxide (21.0-31.0) mmol/L Anion Gap BUN (7-18) mg/dL Creatinine (0.6-1.3) mg/dL Est Cr Clr Drug Dosing mL/min Estimated GFR (MDRD) Glucose (74-105) mg/dL POC Glucose 114 H < 20 L* 174 H (70-105) mg/dl Calcium (8.4-10.2) mg/dl 03/13/17 03/14/17 03/14/17 Range/Units 22:23 06:10 08:02 Sodium 136 (135-145) mmol/L Potassium 3.4 L (3.6-5.0) mmol/L Chloride 97 L (101-111) mmol/L Carbon Dioxide 29.0 (21.0-31.0) mmol/L Anion Gap 13.4 BUN 25 H (7-18) mg/dL Creatinine 0.9 (0.6-1.3) mg/dL Est Cr Clr Drug Dosing 60.56 mL/min Estimated GFR (MDRD) > 60 Glucose 287 H (74-105) mg/dL POC Glucose 96 296 H (70-105) mg/dl Calcium 8.6 (8.4-10.2) mg/dl 03/14/17 Range/Units 11:58 Sodium (135-145) mmol/L Potassium (3.6-5.0) mmol/L Chloride (101-111) mmol/L Carbon Dioxide (21.0-31.0) mmol/L Anion Gap BUN (7-18) mg/dL Creatinine (0.6-1.3) mg/dL Est Cr Clr Drug Dosing mL/min Estimated GFR (MDRD) Glucose (74-105) mg/dL POC Glucose 406 H* (70-105) mg/dl Calcium (8.4-10.2) mg/dl Med Orders - Current: Current Medications Acetaminophen (Tylenol) 650 mg PO Q4H PRN PRN Reason: Pain (mild 1-3 )/fever Last Admin: 03/12/17 09:59 Dose: 650 mg Acetaminophen (Tylenol) 650 mg PO TID [facility] Last Admin: 03/14/17 09:39 Dose: 650 mg Aspirin (Halfprin) 81 mg PO DAILY [facility] Last Admin: 03/14/17 09:38 Dose: 81 mg Butorphanol Tartrate (Stadol Ns) 0 mg DALE TID PRN PRN Reason: Headache Last Admin: 03/14/17 07:44 Dose: 1 spr Calcitriol (Rocaltrol) 0.25 mcg PO DAILY [facility] Last Admin: 03/14/17 09:37 Dose: 0.25 mcg Clopidogrel Bisulfate (Plavix) 75 mg PO DAILY [facility] Stop: 04/01/17 14:16 Last Admin: 03/14/17 09:38 Dose: 75 mg Diphenhydramine HCl (Benadryl) 25 mg PO ASDIRECTED PRN PRN Reason: Itching Last Admin: 03/11/17 21:21 Dose: 25 mg Docusate Sodium/Benzocaine (Enemeez Plus Mini Enema) 1 each RECTAL DAILY PRN PRN Reason: Constipation Duloxetine HCl (Cymbalta) 30 mg PO DAILY [facility] Last Admin: 03/14/17 09:38 Dose: 30 mg Fludrocortisone Acetate (Florinef) 0.2 mg PO BRK [facility] Last Admin: 03/14/17 08:39 Dose: 0.2 mg Folic Acid (Folic Acid) 1 mg PO DAILY [facility] Last Admin: 03/14/17 09:37 Dose: 1 mg Gabapentin (Neurontin) 300 mg PO TID [facility] Last Admin: 03/14/17 09:37 Dose: 300 mg Insulin Aspart (Novolog) 0 unit SUBCUT TIDAC [facility] PRN Reason: Protocol Last Admin: 03/14/17 12:26 Dose: 8 units Levothyroxine Sodium (Levothyroxine) 25 mcg PO ACBREAKFAST [facility] Last Admin: 03/14/17 05:50 Dose: 25 mcg Midodrine (Midodrine) 2.5 mg PO TID [facility] Last Admin: 03/14/17 09:38 Dose: 2.5 mg Ondansetron HCl (Zofran Odt) 4 mg PO Q8H PRN PRN Reason: Nausea Last Admin: 03/14/17 08:39 Dose: 4 mg Fexofenadine/Pseudoephedrine [ Tali-D]Pt's Own Med 1 each PO DAILY PRN PRN Reason: Congestion Blink Gel Tears Pt ('s Own Med) 0 each EYEBOTH DAILY [facility] Last Admin: 03/14/17 09:41 Dose: 1 each Promethazine HCl (Phenadoz) 25 mg RECTAL Q6H PRN PRN Reason: Constipation Rosuvastatin Calcium (Crestor) 20 mg PO DAILY [facility] Last Admin: 03/14/17 09:39 Dose: 20 mg Senna/Docusate Sodium (Senna Plus) 2 tab PO DAILY [facility] Last Admin: 03/14/17 09:38 Dose: 2 tab Sodium Chloride (Saline Flush) 10 ml FLUSH BID [facility] Last Admin: 03/14/17 09:47 Dose: 10 ml Discontinued Medications Dextrose/Water (Dextrose 50% In Water) Confirm Administered Dose 50 ml .ROUTE .STK-MED ONE Stop: 03/13/17 19:56 Last Admin: 03/13/17 20:02 Dose: 50 ml Sodium Chloride (Normal Saline) 1,000 mls @ 100 mls/hr IV ASDIRECTED [facility] Last Infusion: 03/11/17 10:36 Dose: Infused Ibuprofen (Motrin) 400 mg PO Q6H PRN PRN Reason: neck pain Last Admin: 03/14/17 11:06 Dose: 400 mg Insulin Aspart (Novolog) 6 unit SUBCUT TIDMEALS [facility] Last Admin: 03/13/17 17:50 Dose: 6 units Insulin Aspart (Novolog) 12 unit SUBCUT ONETIME ONE Stop: 03/13/17 09:37 Last Admin: 03/13/17 09:36 Dose: 12 units Insulin Detemir (Levemir) 10 unit SUBCUT BID [facility] Last Admin: 03/11/17 09:11 Dose: 10 units Insulin Detemir (Levemir) 15 unit SUBCUT Q12H [facility] Last Admin: 03/13/17 09:24 Dose: 15 units Insulin Detemir (Levemir) 15 unit SUBCUT DAILY [facility] Last Admin: 03/14/17 09:45 Dose: 15 units Insulin Human Regular (Humulin R) 7 unit IV ONETIME ONE PRN Reason: Protocol Stop: 03/09/17 16:47 Last Admin: 03/09/17 17:25 Dose: 7 units Insulin Human Regular (Humulin R) 10 unit IV ONETIME ONE PRN Reason: Protocol Stop: 03/09/17 18:40 Last Admin: 03/09/17 19:03 Dose: 10 units Potassium Chloride (Klor-Con 10) 40 meq PO ONETIME ONE Stop: 03/13/17 16:40 Last Admin: 03/13/17 16:59 Dose: 40 meq Potassium Chloride (Klor-Con 10) 40 meq PO ONETIME ONE Stop: 03/14/17 13:21 - Exam General: Alert, Oriented Neck: Supple Lungs: Clear to Auscultation, Normal Respiratory Effort Cardiovascular: Regular Rate, Regular Rhythm Extremities: No Pedal Edema - Problem List & Annotations (1) Orthostatic hypotension SNOMED Code(s): 35115958 Code(s): I95.1 - ORTHOSTATIC HYPOTENSION Status: Acute Current Visit: Yes (2) Chronic headache SNOMED Code(s): 774161294 Code(s): R51 - HEADACHE Status: Acute Current Visit: Yes (3) Diabetes SNOMED Code(s): 81627708 Code(s): E11.9 - TYPE 2 DIABETES MELLITUS WITHOUT COMPLICATIONS Status: Acute Priority: Medium Current Visit: No - Problem List Review Problem List Initiated/Reviewed/Updated: Yes - My Orders Last 24 Hours: My Active Orders 03/13/17 14:00 Insulin Aspart [NovoLOG] See Protocol SUBCUT TIDAC 03/14/17 10:10 Benzocaine/Docusate Sodium [Enemeez Plus Mini Enema] 1 each RECTAL DAILY PRN 03/14/17 13:16 Communication Order [RC] DAILY 03/14/17 13:39 Insulin Aspart [NovoLOG] 6 unit SUBCUT TID ONE 03/14/17 13:40 oxyCODONE 5 mg PO Q6H PRN 03/14/17 21:00 Insulin Detemir [Levemir] 16 unit SUBCUT BID - Plan Plan:: #Type 1 diabetes mellitus -Uncontrolled -She continues to have wide fluctuation of blood sugars. with symptomatic hypoglycemia will go back to Levemir 16 u bid, 6 units with meals supplemental insulin -Accucheck 4x daily #Hypertension. -BP is on the higher side now but also variable -She is currently on fludrocortisone and Midodrine. -Will continue for now #Hypothyroidism. - On levothyroxine. -Will continue #Diabetic Gastroparesis -On oral Reglan. -Will continue #Diabetic ketoacidosis. -Resolved #Generalized debility. -Continue physical therapy and occupational therapy. #Chronic headache and neck pain Start scheduled Tylenol Does not tolerate motrin She would like to start oxycodone when necessary that has worked well for her at [facility] We discussed the addiction potential Try to minimize use of long-term narcotics due to her chronic headache Had a detailed discussion with the patient and her
[2017-03-14] MEDS ORDERED: Insulin Aspart 100 Units/ML 3 ML Pen SUBCUT SCH (14:00)
[2017-03-14] MEDS: oxyCODONE 5 MG Tab PO PRN (20:19)
[2017-03-14] MEDS: NS + KCl 20mEq/L 1,000 ML IV SCH (20:53)
[2017-03-14] MEDS: Insulin Detemir 100 Units/ML 3 ML Pen SUBCUT SCH (21:20)
[2017-03-15] MEDS: BUTORPHANOL NAS PRN ×3 (01:48→21:12)
[2017-03-15] MEDS: oxyCODONE 5 MG Tab PO PRN ×3 (05:12→17:08)
[2017-03-15] MEDS: Levothyroxine 25 MCG Tab PO SCH (05:13)
[2017-03-15] MEDS: Insulin Aspart 100 Units/ML 3 ML Pen SUBCUT SCH ×7 (08:56→17:10)
[2017-03-15] MEDS: Gabapentin 300 MG Cap PO SCH ×3 (09:28→21:14)
[2017-03-15] MEDS: Ondansetron 4 MG Tab.DIS PO PRN ×2 (09:28→21:25)
[2017-03-15] MEDS: Clopidogrel 75 MG Tab PO SCH (09:28)
[2017-03-15] MEDS: SENNOSIDES PO SCH (09:29)
[2017-03-15] MEDS: DOCUSATE SODIUM PO SCH (09:29)
[2017-03-15] MEDS: Rosuvastatin 10 MG Tab PO SCH (09:29)
[2017-03-15] MEDS: DULoxetine 30 MG Cap PO SCH (09:30)
[2017-03-15] MEDS: Fludrocortisone 0.1 MG Tab PO SCH (09:30)
[2017-03-15] MEDS: Folic Acid 1 MG Tab PO SCH (09:30)
[2017-03-15] MEDS: Aspirin 81 MG Tab.EC PO SCH (09:30)
[2017-03-15] MEDS: Calcitriol 0.25 MCG Cap PO SCH (09:30)
[2017-03-15] MEDS: Midodrine 2.5 MG Tab PO SCH ×3 (09:31→21:14)
[2017-03-15] MEDS: Acetaminophen 325 MG Tab PO SCH ×3 (09:31→21:15)
[2017-03-15] MEDS: Sodium Chloride 0.9% 10 ML Syringe FLUSH SCH ×2 (09:33→21:16)
[2017-03-15] MEDS: Insulin Detemir 100 Units/ML 3 ML Pen SUBCUT SCH ×2 (09:34→21:27)
[2017-03-15] MEDS: BLINK TEARS EYEBOTH SCH (09:34)
[2017-03-15] MEDS: NS + KCl 20mEq/L 1,000 ML IV SCH ×2 (10:21→23:52)
[2017-03-15] MEDS ORDERED: Zolpidem 5 MG Tab PO PRN (10:58)
[2017-03-16] MEDS: oxyCODONE 5 MG Tab PO PRN ×4 (00:10→22:29)
[2017-03-16] MEDS ORDERED: 50% Dextrose in Water 50 ML Syringe ONE (03:11)
[2017-03-16] MEDS ORDERED: 50% Dextrose in Water 50 ML Syringe IVPUSH ONE (03:16)
[2017-03-16] MEDS: Levothyroxine 25 MCG Tab PO SCH (05:30)
[2017-03-16] MEDS: Acetaminophen 325 MG Tab PO SCH ×3 (10:18→22:22)
[2017-03-16] MEDS: Fludrocortisone 0.1 MG Tab PO SCH (10:20)
[2017-03-16] MEDS: Aspirin 81 MG Tab.EC PO SCH (10:21)
[2017-03-16] MEDS: Rosuvastatin 10 MG Tab PO SCH (10:21)
[2017-03-16] MEDS: DULoxetine 30 MG Cap PO SCH (10:21)
[2017-03-16] MEDS: Midodrine 2.5 MG Tab PO SCH ×3 (10:22→22:24)
[2017-03-16] MEDS: Calcitriol 0.25 MCG Cap PO SCH (10:22)
[2017-03-16] MEDS: Gabapentin 300 MG Cap PO SCH ×3 (10:22→22:22)
[2017-03-16] MEDS: Clopidogrel 75 MG Tab PO SCH (10:22)
[2017-03-16] MEDS: BLINK TEARS EYEBOTH SCH (10:23)
[2017-03-16] MEDS: DOCUSATE SODIUM PO SCH (10:24)
[2017-03-16] MEDS: SENNOSIDES PO SCH (10:24)
[2017-03-16] MEDS: Sodium Chloride 0.9% 10 ML Syringe FLUSH SCH ×2 (10:25→22:31)
[2017-03-16] MEDS: Insulin Aspart 100 Units/ML 3 ML Pen SUBCUT SCH ×6 (10:38→18:02)
[2017-03-16] MEDS: Insulin Detemir 100 Units/ML 3 ML Pen SUBCUT SCH ×2 (10:39→22:09)
[2017-03-16] MEDS: Folic Acid 1 MG Tab PO SCH (10:52)
[2017-03-16] MEDS: BUTORPHANOL NAS PRN (11:34)
[2017-03-16] MEDS: Ondansetron 4 MG Tab.DIS PO PRN (14:39)
[2017-03-17] MEDS: BUTORPHANOL NAS PRN ×3 (01:13→18:29)
[2017-03-17] MEDS: Levothyroxine 25 MCG Tab PO SCH (05:12)
[2017-03-17] MEDS: oxyCODONE 5 MG Tab PO PRN ×3 (05:14→20:38)
[2017-03-17] MEDS: Acetaminophen 325 MG Tab PO SCH ×3 (08:53→20:36)
[2017-03-17] MEDS: Fludrocortisone 0.1 MG Tab PO SCH (08:54)
[2017-03-17] MEDS: Aspirin 81 MG Tab.EC PO SCH (08:55)
[2017-03-17] MEDS: DULoxetine 30 MG Cap PO SCH (08:55)
[2017-03-17] MEDS: Midodrine 2.5 MG Tab PO SCH ×3 (08:55→20:36)
[2017-03-17] MEDS: Rosuvastatin 10 MG Tab PO SCH (08:55)
[2017-03-17] MEDS: Calcitriol 0.25 MCG Cap PO SCH (08:55)
[2017-03-17] MEDS: DOCUSATE SODIUM PO SCH (08:57)
[2017-03-17] MEDS: SENNOSIDES PO SCH (08:57)
[2017-03-17] MEDS: Gabapentin 300 MG Cap PO SCH ×3 (08:58→20:37)
[2017-03-17] MEDS: Clopidogrel 75 MG Tab PO SCH (08:58)
[2017-03-17] MEDS: Folic Acid 1 MG Tab PO SCH (08:58)
[2017-03-17] MEDS: Insulin Detemir 100 Units/ML 3 ML Pen SUBCUT SCH ×2 (08:59→21:42)
[2017-03-17] MEDS: Insulin Aspart 100 Units/ML 3 ML Pen SUBCUT SCH ×6 (09:00→19:17)
[2017-03-17] MEDS: BLINK TEARS EYEBOTH SCH (09:01)
[2017-03-17] MEDS: Sodium Chloride 0.9% 10 ML Syringe FLUSH SCH ×2 (09:02→20:37)
[2017-03-17] MEDS: Ondansetron 4 MG Tab.DIS PO PRN (14:41)
[2017-03-18] MEDS: BUTORPHANOL NAS PRN ×3 (01:26→17:49)
[2017-03-18] MEDS: oxyCODONE 5 MG Tab PO PRN ×3 (04:35→20:00)
[2017-03-18] MEDS: Levothyroxine 25 MCG Tab PO SCH (06:19)
[2017-03-18] MEDS: Acetaminophen 325 MG Tab PO SCH ×3 (09:05→21:50)
[2017-03-18] MEDS: Rosuvastatin 10 MG Tab PO SCH (09:05)
[2017-03-18] MEDS: Gabapentin 300 MG Cap PO SCH ×3 (09:05→21:51)
[2017-03-18] MEDS: Midodrine 2.5 MG Tab PO SCH ×3 (09:05→22:06)
[2017-03-18] MEDS: Calcitriol 0.25 MCG Cap PO SCH (09:06)
[2017-03-18] MEDS: DULoxetine 30 MG Cap PO SCH (09:06)
[2017-03-18] MEDS: Fludrocortisone 0.1 MG Tab PO SCH (09:06)
[2017-03-18] MEDS: Clopidogrel 75 MG Tab PO SCH (09:07)
[2017-03-18] MEDS: Aspirin 81 MG Tab.EC PO SCH (09:07)
[2017-03-18] MEDS: Insulin Detemir 100 Units/ML 3 ML Pen SUBCUT SCH ×2 (09:07→21:52)
[2017-03-18] MEDS: Folic Acid 1 MG Tab PO SCH (09:07)
[2017-03-18] MEDS: Insulin Aspart 100 Units/ML 3 ML Pen SUBCUT SCH ×6 (09:09→17:42)
[2017-03-18] MEDS: Sodium Chloride 0.9% 10 ML Syringe FLUSH SCH ×2 (09:10→21:54)
[2017-03-18] MEDS: SENNOSIDES PO SCH (09:12)
[2017-03-18] MEDS: BLINK TEARS EYEBOTH SCH (09:12)
[2017-03-18] MEDS: DOCUSATE SODIUM PO SCH (09:12)
[2017-03-18] MEDS: Ondansetron 4 MG Tab.DIS PO PRN (21:57)
[2017-03-19] MEDS: BUTORPHANOL NAS PRN ×3 (01:49→17:07)
[2017-03-19] MEDS: oxyCODONE 5 MG Tab PO PRN ×3 (05:01→19:06)
[2017-03-19] MEDS: Levothyroxine 25 MCG Tab PO SCH (05:01)
[2017-03-19 06:55] LABS: CHLORIDE,CL 98 mmol/L (101-111); SODIUM,NA 137 mmol/L (135-145)
[2017-03-19 07:59] VITALS: BP 135/44
[2017-03-19] MEDS: Folic Acid 1 MG Tab PO SCH (09:23)
[2017-03-19] MEDS: Rosuvastatin 10 MG Tab PO SCH (09:23)
[2017-03-19] MEDS: Gabapentin 300 MG Cap PO SCH ×3 (09:23→21:26)
[2017-03-19] MEDS: SENNOSIDES PO SCH (09:24)
[2017-03-19] MEDS: DOCUSATE SODIUM PO SCH (09:24)
[2017-03-19] MEDS: Midodrine 2.5 MG Tab PO SCH ×3 (09:25→21:26)
[2017-03-19] MEDS: Aspirin 81 MG Tab.EC PO SCH (09:25)
[2017-03-19] MEDS: Calcitriol 0.25 MCG Cap PO SCH (09:25)
[2017-03-19] MEDS: Acetaminophen 325 MG Tab PO SCH ×3 (09:26→21:26)
[2017-03-19] MEDS: Clopidogrel 75 MG Tab PO SCH (09:26)
[2017-03-19] MEDS: DULoxetine 30 MG Cap PO SCH (09:26)
[2017-03-19] MEDS: Insulin Detemir 100 Units/ML 3 ML Pen SUBCUT SCH (09:28)
[2017-03-19] MEDS: Insulin Aspart 100 Units/ML 3 ML Pen SUBCUT SCH ×6 (09:29→17:54)
[2017-03-19] MEDS: Sodium Chloride 0.9% 10 ML Syringe FLUSH SCH ×2 (09:32→21:27)
[2017-03-19] MEDS: BLINK TEARS EYEBOTH SCH (09:36)
[2017-03-19] MEDS: Fludrocortisone 0.1 MG Tab PO SCH (09:45)
[2017-03-19] MEDS ORDERED: Insulin Detemir 100 Units/ML 3 ML Pen SUBCUT SCH (10:52)
--- NOTE | 2017-03-19 10:55 | PCM.PN ---
- General Info Date of Service: 03/19/17 Admission Dx/Problem (Free Text): Admission Diagnosis/Problem Admission Diagnosis/Problem Weakness Subjective Update: The patient continues to have a variable blood sugars. Continues to have headache and neck ache. This has been chronic. better controlled now no chills, no fever Functional Status: Reports: Tolerating Diet - Review of Systems Pulmonary: Denies: Shortness of Breath Cardiovascular: Denies: Chest Pain, Edema Gastrointestinal: Denies: Abdominal Pain - Patient Data Vitals - Most Recent: Last Vital Signs Temp 36.4 C 03/19/17 07:58 Pulse 79 03/19/17 07:58 Resp 17 03/19/17 07:58 BP 135/44 L 03/19/17 07:58 Pulse Ox 94 L 03/19/17 07:58 Orthostatic Blood Pressure [ 80/40 Standing] Orthostatic Blood Pressure [ 111/58 Sitting] Weight - Most Recent: 64.047 kg I&O - Last 24 Hours: Intake & Output 03/18/17 03/19/17 03/19/17 22:59 06:59 14:59 Intake Total 400 100 Balance 400 100 Lab Results Last 24 Hours: Laboratory Results - last 24 hr 03/18/17 03/18/17 03/18/17 Range/Units 11:16 16:55 21:06 WBC (5.0-10.0) 10^3/uL RBC (4.2-5.4) 10^6/uL Hgb (12.0-16.0) g/dL Hct (37.0-47.0) % MCV (80-100) fL MCH (27.0-34.0) pg MCHC (33.0-35.0) g/dL Plt Count (150-450) 10^3/uL Neut % (Auto) (42.2-75.2) % Lymph % (Auto) (20.5-50.1) % Donley % (Auto) (2-8) % Eos % (Auto) (1.0-3.0) % Baso % (Auto) (0.0-1.0) % Sodium (135-145) mmol/L Potassium (3.6-5.0) mmol/L Chloride (101-111) mmol/L Carbon Dioxide (21.0-31.0) mmol/L Anion Gap BUN (7-18) mg/dL Creatinine (0.6-1.3) mg/dL Est Cr Clr Drug Dosing mL/min Estimated GFR (MDRD) Glucose (74-105) mg/dL POC Glucose 163 H 122 H 155 H (70-105) mg/dl Calcium (8.4-10.2) mg/dl 03/19/17 03/19/17 03/19/17 Range/Units 06:00 06:00 07:39 WBC 6.3 (5.0-10.0) 10^3/uL RBC 3.14 L (4.2-5.4) 10^6/uL Hgb 9.9 L (12.0-16.0) g/dL Hct 30.9 L (37.0-47.0) % MCV 98.4 (80-100) fL MCH 31.5 (27.0-34.0) pg MCHC 32.0 L (33.0-35.0) g/dL Plt Count 310 (150-450) 10^3/uL Neut % (Auto) 52.9 (42.2-75.2) % Lymph % (Auto) 29.6 (20.5-50.1) % Donley % (Auto) 10.0 H (2-8) % Eos % (Auto) 6.7 H (1.0-3.0) % Baso % (Auto) 0.8 (0.0-1.0) % Sodium 137 (135-145) mmol/L Potassium 4.0 (3.6-5.0) mmol/L Chloride 98 L (101-111) mmol/L Carbon Dioxide 30.0 (21.0-31.0) mmol/L Anion Gap 13.0 BUN 22 H (7-18) mg/dL Creatinine 0.8 (0.6-1.3) mg/dL Est Cr Clr Drug Dosing 68.13 mL/min Estimated GFR (MDRD) > 60 Glucose 449 H* (74-105) mg/dL POC Glucose 394 H (70-105) mg/dl Calcium 8.5 (8.4-10.2) mg/dl Med Orders - Current: Current Medications Acetaminophen (Tylenol) 650 mg PO Q4H PRN PRN Reason: Pain (mild 1-3 )/fever Last Admin: 03/12/17 09:59 Dose: 650 mg Acetaminophen (Tylenol) 650 mg PO TID [facility] Last Admin: 03/19/17 09:26 Dose: 650 mg Aspirin (Halfprin) 81 mg PO DAILY [facility] Last Admin: 03/19/17 09:25 Dose: 81 mg Butorphanol Tartrate (Stadol Ns) 0 mg DALE TID PRN PRN Reason: Headache Last Admin: 03/19/17 08:31 Dose: 1 spr Calcitriol (Rocaltrol) 0.25 mcg PO DAILY [facility] Last Admin: 03/19/17 09:25 Dose: 0.25 mcg Clopidogrel Bisulfate (Plavix) 75 mg PO DAILY [facility] Stop: 04/01/17 14:16 Last Admin: 03/19/17 09:26 Dose: 75 mg Diphenhydramine HCl (Benadryl) 25 mg PO ASDIRECTED PRN PRN Reason: Itching Last Admin: 03/11/17 21:21 Dose: 25 mg Docusate Sodium/Benzocaine (Enemeez Plus Mini Enema) 1 each RECTAL DAILY PRN PRN Reason: Constipation Duloxetine HCl (Cymbalta) 30 mg PO DAILY [facility] Last Admin: 03/19/17 09:26 Dose: 30 mg Fludrocortisone Acetate (Florinef) 0.2 mg PO BRK [facility] Last Admin: 03/19/17 09:45 Dose: 0.2 mg Folic Acid (Folic Acid) 1 mg PO DAILY [facility] Last Admin: 03/19/17 09:23 Dose: 1 mg Gabapentin (Neurontin) 300 mg PO TID [facility] Last Admin: 03/19/17 09:23 Dose: 300 mg Insulin Aspart (Novolog) 0 unit SUBCUT TIDAC [facility] PRN Reason: Protocol Last Admin: 03/19/17 09:31 Dose: 8 units Insulin Aspart (Novolog) 6 unit SUBCUT TIDAC [facility] Last Admin: 03/19/17 09:29 Dose: 6 units Insulin Detemir (Levemir) 16 unit SUBCUT DAILY [facility] Last Admin: 03/19/17 09:28 Dose: 16 units Insulin Detemir (Levemir) 13 unit SUBCUT BEDTIME [facility] Levothyroxine Sodium (Levothyroxine) 25 mcg PO ACBREAKFAST [facility] Last Admin: 03/19/17 05:01 Dose: 25 mcg Midodrine (Midodrine) 2.5 mg PO TID [facility] Last Admin: 03/19/17 09:25 Dose: 2.5 mg Ondansetron HCl (Zofran Odt) 4 mg PO Q8H PRN PRN Reason: Nausea Last Admin: 03/18/17 21:57 Dose: 4 mg Oxycodone HCl (Oxycodone) 5 mg PO Q6H PRN PRN Reason: severe pain Last Admin: 03/19/17 05:01 Dose: 5 mg Fexofenadine/Pseudoephedrine [ Tali-D]Pt's Own Med 1 each PO DAILY PRN PRN Reason: Congestion Blink Gel Tears Pt ('s Own Med) 0 each EYEBOTH DAILY [facility] Last Admin: 03/19/17 09:36 Dose: 1 each Promethazine HCl (Phenadoz) 25 mg RECTAL Q6H PRN PRN Reason: Constipation Rosuvastatin Calcium (Crestor) 20 mg PO DAILY [facility] Last Admin: 03/19/17 09:23 Dose: 20 mg Senna/Docusate Sodium (Senna Plus) 2 tab PO DAILY [facility] Last Admin: 03/19/17 09:24 Dose: 2 tab Sodium Chloride (Saline Flush) 10 ml FLUSH BID [facility] Last Admin: 03/19/17 09:32 Dose: 10 ml Zolpidem Tartrate (Ambien) 5 mg PO BEDTIME PRN PRN Reason: for sleep Discontinued Medications Dextrose/Water (Dextrose 50% In Water) Confirm Administered Dose 50 ml .ROUTE .STK-MED ONE Stop: 03/13/17 19:56 Last Admin: 03/13/17 20:02 Dose: 50 ml Dextrose/Water (Dextrose 50% In Water) Confirm Administered Dose 50 ml .ROUTE .STK-MED ONE Stop: 03/16/17 03:12 Last Admin: 03/16/17 03:16 Dose: 50 ml Dextrose/Water (Dextrose 50% In Water) 50 ml IVPUSH ONETIME ONE Stop: 03/16/17 03:17 Last Admin: 03/16/17 03:43 Dose: Not Given Sodium Chloride (Normal Saline) 1,000 mls @ 100 mls/hr IV ASDIRECTED [facility] Last Infusion: 03/11/17 10:36 Dose: Infused Potassium Chloride/Sodium Chloride (Normal Saline With 20 Meq Kcl) 1,000 mls @ 75 mls/hr IV ASDIRECTED [facility] Last Admin: 03/15/17 23:52 Dose: 75 mls/hr Ibuprofen (Motrin) 400 mg PO Q6H PRN PRN Reason: neck pain Last Admin: 03/14/17 11:06 Dose: 400 mg Insulin Aspart (Novolog) 6 unit SUBCUT TIDMEALS [facility] Last Admin: 03/13/17 17:50 Dose: 6 units Insulin Aspart (Novolog) 12 unit SUBCUT ONETIME ONE Stop: 03/13/17 09:37 Last Admin: 03/13/17 09:36 Dose: 12 units Insulin Aspart (Novolog) 6 unit SUBCUT TID ONE Stop: 03/14/17 13:40 Last Admin: 03/14/17 13:56 Dose: Not Given Insulin Aspart (Novolog) 20 unit SUBCUT ONETIME ONE Stop: 03/14/17 13:45 Last Admin: 03/14/17 13:47 Dose: 20 units Insulin Aspart (Novolog) 6 unit SUBCUT TID [facility] Insulin Detemir (Levemir) 10 unit SUBCUT BID [facility] Last Admin: 03/11/17 09:11 Dose: 10 units Insulin Detemir (Levemir) 15 unit SUBCUT Q12H [facility] Last Admin: 03/13/17 09:24 Dose: 15 units Insulin Detemir (Levemir) 15 unit SUBCUT DAILY [facility] Last Admin: 03/14/17 09:45 Dose: 15 units Insulin Detemir (Levemir) 16 unit SUBCUT BID [facility] Last Admin: 03/16/17 10:39 Dose: 16 units Insulin Detemir (Levemir) 10 unit SUBCUT BEDTIME [facility] Last Admin: 03/18/17 21:52 Dose: 10 units Insulin Human Regular (Humulin R) 7 unit IV ONETIME ONE PRN Reason: Protocol Stop: 03/09/17 16:47 Last Admin: 03/09/17 17:25 Dose: 7 units Insulin Human Regular (Humulin R) 10 unit IV ONETIME ONE PRN Reason: Protocol Stop: 03/09/17 18:40 Last Admin: 03/09/17 19:03 Dose: 10 units Potassium Chloride (Klor-Con 10) 40 meq PO ONETIME ONE Stop: 03/13/17 16:40 Last Admin: 03/13/17 16:59 Dose: 40 meq Potassium Chloride (Klor-Con 10) 40 meq PO ONETIME ONE Stop: 03/14/17 13:21 Last Admin: 03/14/17 13:49 Dose: 40 meq - Exam General: Alert, Oriented Neck: Supple Lungs: Clear to Auscultation, Normal Respiratory Effort Cardiovascular: Regular Rate, Regular Rhythm Extremities: No Pedal Edema - Problem List & Annotations (1) Orthostatic hypotension SNOMED Code(s): 22866097 Code(s): I95.1 - ORTHOSTATIC HYPOTENSION Status: Acute Current Visit: Yes (2) Chronic headache SNOMED Code(s): 832164925 Code(s): R51 - HEADACHE Status: Acute Current Visit: Yes (3) Diabetes SNOMED Code(s): 00495724 Code(s): E11.9 - TYPE 2 DIABETES MELLITUS WITHOUT COMPLICATIONS Status: Acute Priority: Medium Current Visit: No - Problem List Review Problem List Initiated/Reviewed/Updated: Yes - My Orders Last 24 Hours: My Active Orders 03/19/17 10:52 Insulin Detemir [Levemir] 13 unit SUBCUT BEDTIME - Plan Plan:: #Type 1 diabetes mellitus -Uncontrolled -She continues to have wide fluctuation of blood sugars. with symptomatic hypoglycemia adjusting Levemir morning and evening doses supplemental insulin -Accucheck 4x daily #Hypertension. -BP is on the higher side now but also variable -She is currently on fludrocortisone and Midodrine. -Will continue for now #Hypothyroidism. - On levothyroxine. -Will continue #Diabetic Gastroparesis -On oral Reglan. -Will continue #Diabetic ketoacidosis. -Resolved #Generalized debility. -Continue physical therapy and occupational therapy. #Chronic headache and neck pain Start scheduled Tylenol Does not tolerate motrin She would like to start oxycodone when necessary that has worked well for her at [facility] We discussed the addiction potential Try to minimize use of long-term narcotics due to her chronic headache will have massage tx. today
[2017-03-19] MEDS ORDERED: Insulin Aspart 100 Units/ML 3 ML Pen SUBCUT ONE (11:45)
[2017-03-19] MEDS ORDERED: oxyCODONE 5 MG Tab PO ONE (23:34)
[2017-03-20] MEDS: oxyCODONE 5 MG Tab PO PRN ×3 (00:48→14:19)
[2017-03-20] MEDS: BUTORPHANOL NAS PRN ×2 (02:43→11:18)
[2017-03-20] MEDS: Levothyroxine 25 MCG Tab PO SCH (06:16)
[2017-03-20] MEDS: SENNOSIDES PO SCH (08:25)
[2017-03-20] MEDS: Folic Acid 1 MG Tab PO SCH (08:25)
[2017-03-20] MEDS: DULoxetine 30 MG Cap PO SCH (08:25)
[2017-03-20] MEDS: DOCUSATE SODIUM PO SCH (08:25)
[2017-03-20] MEDS: Clopidogrel 75 MG Tab PO SCH (08:25)
[2017-03-20] MEDS: Gabapentin 300 MG Cap PO SCH ×2 (08:26→14:20)
[2017-03-20] MEDS: Midodrine 2.5 MG Tab PO SCH ×2 (08:26→14:21)
[2017-03-20] MEDS: Rosuvastatin 10 MG Tab PO SCH (08:26)
[2017-03-20] MEDS: Aspirin 81 MG Tab.EC PO SCH (08:26)
[2017-03-20] MEDS: Calcitriol 0.25 MCG Cap PO SCH (08:26)
[2017-03-20] MEDS: Fludrocortisone 0.1 MG Tab PO SCH (08:27)
[2017-03-20] MEDS: Acetaminophen 325 MG Tab PO SCH ×2 (08:27→14:20)
[2017-03-20] MEDS: BLINK TEARS EYEBOTH SCH (08:28)
[2017-03-20] MEDS: Insulin Aspart 100 Units/ML 3 ML Pen SUBCUT SCH ×4 (08:30→12:08)
[2017-03-20] MEDS: Insulin Detemir 100 Units/ML 3 ML Pen SUBCUT SCH (08:40)
[2017-03-20] MEDS: Sodium Chloride 0.9% 10 ML Syringe FLUSH SCH (08:42)
--- NOTE | 2017-03-20 12:52 | PCM.DCSUM1 ---
Discharge Summary - Hospital Course Free Text/Narrative:: The patient was admitted with generalized weakness She has a history of difficult to control diabetes, orthostatic hypotension. She continued to have chronic neck pain. Her activity tolerance has improved. She feels comfortable and ready to go home. #Type 1 diabetes mellitus -difficult to control -She continues to have wide fluctuation of blood sugars. with symptomatic hypoglycemia continue to adjust Levemir morning and evening doses at home #Hypertension with a history of orthostatic hypotension -She is currently on fludrocortisone and Midodrine. -Will continue for now #Hypothyroidism. - On levothyroxine. -Will continue #Diabetic Gastroparesis -On oral Reglan. -Will continue #Diabetic ketoacidosis. -Resolved #Generalized debility. -Continue physical therapy y and home care as outpatient #Chronic headache and neck pain Use Tylenol Try to minimize narcotics Does not tolerate motrin, continue massage therapy - Discharge Data Discharge Date: 03/20/17 Discharge Disposition: Home, Self-Care 01 Condition: Good - Discharge Diagnosis/Problem(s) (1) Orthostatic hypotension SNOMED Code(s): 88527118 ICD Code: I95.1 - ORTHOSTATIC HYPOTENSION Status: Acute Current Visit: Yes (2) Chronic headache SNOMED Code(s): 583281728 ICD Code: R51 - HEADACHE Status: Acute Current Visit: Yes (3) Diabetes SNOMED Code(s): 22984716 ICD Code: E11.9 - TYPE 2 DIABETES MELLITUS WITHOUT COMPLICATIONS Status: Acute Priority: Medium Current Visit: No - Patient Summary/Data Consults: Consultations 03/09/17 16:48 Consult to Occupational Therapy [OT Evaluation and Treatment] [CONS] Routine Consult to Physical Therapy [PT Evaluation and Treatment] [CONS] Routine - Patient Instructions Diet: Usual Diet as Tolerated Activity: As Tolerated - Discharge Plan Prescriptions/Med Rec: oxyCODONE 5 mg PO Q6H PRN #22 tablet PRN Reason: severe pain Home Medications: Home Meds Insulin Detemir [Levemir] 10 units SUBCUT TID 05/11/13 [History] Rosuvastatin Calcium [Crestor] 20 mg PO DAILY 05/11/13 [History] Aspirin [Adult Low Dose Aspirin EC] 81 mg PO DAILY 07/23/13 [History] Folic Acid 1 mg PO DAILY 08/12/15 [History] Insulin Aspart [Novolog Flexpen] 6 units SQ TIDMEALS 08/12/15 [History] Fludrocortisone [Florinef] 0.2 mg PO BRK 10/01/15 [History] Midodrine 2.5 mg PO TID 10/01/15 [History] diphenhydrAMINE [Benadryl] 25 mg PO ASDIRECTED PRN 10/01/15 [History] Fexofenadine/Pseudoephedrine [Tali-D 24 Hour Tablet] 1 tab PO DAILY PRN 05/14 [History] Glycerin/Propylene Glycol [Artificial Tears Drops] 1 drop OP DAILY 05/14/16 [ History] Levothyroxine 25 mcg PO ACBREAKFAST 05/14/16 [History] Promethazine [Phenadoz] 25 mg RECTAL Q6H PRN 05/14/16 [History] Calcitriol 0.25 mcg PO DAILY 03/09/17 [History] Gabapentin [Neurontin] 300 mg PO TID 03/09/17 [History] Non-Formulary Medication [NF Drug] 1 drop EYEBOTH DAILY 03/09/17 [History] Non-Formulary Medication [NF Drug] 2 tab PO DAILY 03/09/17 [History] Ondansetron [Zofran] 4 mg PO Q8H PRN 03/09/17 [History] Acetaminophen [Tylenol] 650 mg PO Q4H PRN tablet 03/20/17 [Rx] oxyCODONE 5 mg PO Q6H PRN #22 tablet 03/20/17 [Rx] Referrals: Darin Pérez MD [Physician] - (in 3-4 days) - Discharge Summary/Plan Comment DC Time >30 min.: No - General Info Date of Service: 03/20/17 - Review of Systems General: Denies: Fever Pulmonary: Denies: Shortness of Breath Cardiovascular: Denies: Chest Pain Neurological: Denies: Confusion - Patient Data Vitals - Most Recent: Last Vital Signs Temp 36.4 C 03/19/17 07:58 Pulse 79 03/19/17 07:58 Resp 17 03/19/17 07:58 BP 135/44 L 03/19/17 07:58 Pulse Ox 94 L 03/19/17 07:58 Orthostatic Blood Pressure [ 80/40 Standing] Orthostatic Blood Pressure [ 111/58 Sitting] Weight - Most Recent: 64.047 kg I&O - Last 24 hours: Intake & Output 03/19/17 03/20/17 03/20/17 22:59 06:59 14:59 Intake Total 1800 Balance 1800 Lab Results - Last 24 hrs: Laboratory Results - last 24 hr 03/19/17 03/19/17 03/20/17 Range/Units 16:54 21:25 08:11 POC Glucose 124 H 215 H 73 (70-105) mg/dl 03/20/17 Range/Units 11:27 POC Glucose 255 H (70-105) mg/dl Med Orders - Current: Current Medications Acetaminophen (Tylenol) 650 mg PO Q4H PRN PRN Reason: Pain (mild 1-3 )/fever Last Admin: 03/12/17 09:59 Dose: 650 mg Acetaminophen (Tylenol) 650 mg PO TID [facility] Last Admin: 03/20/17 08:27 Dose: 650 mg Aspirin (Halfprin) 81 mg PO DAILY [facility] Last Admin: 03/20/17 08:26 Dose: 81 mg Butorphanol Tartrate (Stadol Ns) 0 mg DALE TID PRN PRN Reason: Headache Last Admin: 03/20/17 11:18 Dose: 1 spr Calcitriol (Rocaltrol) 0.25 mcg PO DAILY [facility] Last Admin: 03/20/17 08:26 Dose: 0.25 mcg Clopidogrel Bisulfate (Plavix) 75 mg PO DAILY [facility] Stop: 04/01/17 14:16 Last Admin: 03/20/17 08:25 Dose: 75 mg Diphenhydramine HCl (Benadryl) 25 mg PO ASDIRECTED PRN PRN Reason: Itching Last Admin: 03/11/17 21:21 Dose: 25 mg Docusate Sodium/Benzocaine (Enemeez Plus Mini Enema) 1 each RECTAL DAILY PRN PRN Reason: Constipation Duloxetine HCl (Cymbalta) 30 mg PO DAILY [facility] Last Admin: 03/20/17 08:25 Dose: 30 mg Fludrocortisone Acetate (Florinef) 0.2 mg PO BRK [facility] Last Admin: 03/20/17 08:27 Dose: 0.2 mg Folic Acid (Folic Acid) 1 mg PO DAILY [facility] Last Admin: 03/20/17 08:25 Dose: 1 mg Gabapentin (Neurontin) 300 mg PO TID [facility] Last Admin: 03/20/17 08:26 Dose: 300 mg Insulin Aspart (Novolog) 0 unit SUBCUT TIDAC [facility] PRN Reason: Protocol Last Admin: 03/20/17 12:07 Dose: 6 units Insulin Aspart (Novolog) 6 unit SUBCUT TIDAC [facility] Last Admin: 03/20/17 12:08 Dose: 6 units Insulin Detemir (Levemir) 16 unit SUBCUT DAILY [facility] Last Admin: 03/20/17 08:40 Dose: 16 units Insulin Detemir (Levemir) 13 unit SUBCUT BEDTIME [facility] Last Admin: 03/19/17 21:27 Dose: 13 units Levothyroxine Sodium (Levothyroxine) 25 mcg PO ACBREAKFAST [facility] Last Admin: 03/20/17 06:16 Dose: 25 mcg Midodrine (Midodrine) 2.5 mg PO TID [facility] Last Admin: 03/20/17 08:26 Dose: 2.5 mg Ondansetron HCl (Zofran Odt) 4 mg PO Q8H PRN PRN Reason: Nausea Last Admin: 03/18/17 21:57 Dose: 4 mg Oxycodone HCl (Oxycodone) 5 mg PO Q6H PRN PRN Reason: severe pain Last Admin: 03/20/17 08:38 Dose: 5 mg Fexofenadine/Pseudoephedrine [ Tali-D]Pt's Own Med 1 each PO DAILY PRN PRN Reason: Congestion Blink Gel Tears Pt ('s Own Med) 0 each EYEBOTH DAILY [facility] Last Admin: 03/20/17 08:28 Dose: 1 each Promethazine HCl (Phenadoz) 25 mg RECTAL Q6H PRN PRN Reason: Constipation Rosuvastatin Calcium (Crestor) 20 mg PO DAILY [facility] Last Admin: 03/20/17 08:26 Dose: 20 mg Senna/Docusate Sodium (Senna Plus) 2 tab PO DAILY [facility] Last Admin: 03/20/17 08:25 Dose: 2 tab Sodium Chloride (Saline Flush) 10 ml FLUSH BID [facility] Last Admin: 03/20/17 08:42 Dose: 10 ml Zolpidem Tartrate (Ambien) 5 mg PO BEDTIME PRN PRN Reason: for sleep Discontinued Medications Dextrose/Water (Dextrose 50% In Water) Confirm Administered Dose 50 ml .ROUTE .STK-MED ONE Stop: 03/13/17 19:56 Last Admin: 03/13/17 20:02 Dose: 50 ml Dextrose/Water (Dextrose 50% In Water) Confirm Administered Dose 50 ml .ROUTE .STK-MED ONE Stop: 03/16/17 03:12 Last Admin: 03/16/17 03:16 Dose: 50 ml Dextrose/Water (Dextrose 50% In Water) 50 ml IVPUSH ONETIME ONE Stop: 03/16/17 03:17 Last Admin: 03/16/17 03:43 Dose: Not Given Sodium Chloride (Normal Saline) 1,000 mls @ 100 mls/hr IV ASDIRECTED [facility] Last Infusion: 03/11/17 10:36 Dose: Infused Potassium Chloride/Sodium Chloride (Normal Saline With 20 Meq Kcl) 1,000 mls @ 75 mls/hr IV ASDIRECTED [facility] Last Admin: 03/15/17 23:52 Dose: 75 mls/hr Ibuprofen (Motrin) 400 mg PO Q6H PRN PRN Reason: neck pain Last Admin: 03/14/17 11:06 Dose: 400 mg Insulin Aspart (Novolog) 6 unit SUBCUT TIDMEALS [facility] Last Admin: 03/13/17 17:50 Dose: 6 units Insulin Aspart (Novolog) 12 unit SUBCUT ONETIME ONE Stop: 03/13/17 09:37 Last Admin: 03/13/17 09:36 Dose: 12 units Insulin Aspart (Novolog) 6 unit SUBCUT TID ONE Stop: 03/14/17 13:40 Last Admin: 03/14/17 13:56 Dose: Not Given Insulin Aspart (Novolog) 20 unit SUBCUT ONETIME ONE Stop: 03/14/17 13:45 Last Admin: 03/14/17 13:47 Dose: 20 units Insulin Aspart (Novolog) 6 unit SUBCUT TID [facility] Insulin Aspart (Novolog) 4 unit SUBCUT ONETIME ONE Stop: 03/19/17 11:46 Last Admin: 03/19/17 12:38 Dose: 4 units Insulin Detemir (Levemir) 10 unit SUBCUT BID [facility] Last Admin: 03/11/17 09:11 Dose: 10 units Insulin Detemir (Levemir) 15 unit SUBCUT Q12H [facility] Last Admin: 03/13/17 09:24 Dose: 15 units Insulin Detemir (Levemir) 15 unit SUBCUT DAILY [facility] Last Admin: 03/14/17 09:45 Dose: 15 units Insulin Detemir (Levemir) 16 unit SUBCUT BID [facility] Last Admin: 03/16/17 10:39 Dose: 16 units Insulin Detemir (Levemir) 10 unit SUBCUT BEDTIME [facility] Last Admin: 03/18/17 21:52 Dose: 10 units Insulin Human Regular (Humulin R) 7 unit IV ONETIME ONE PRN Reason: Protocol Stop: 03/09/17 16:47 Last Admin: 03/09/17 17:25 Dose: 7 units Insulin Human Regular (Humulin R) 10 unit IV ONETIME ONE PRN Reason: Protocol Stop: 03/09/17 18:40 Last Admin: 03/09/17 19:03 Dose: 10 units Oxycodone HCl (Oxycodone) 5 mg PO ONETIME ONE Stop: 03/19/17 23:35 Last Admin: 03/19/17 23:45 Dose: 5 mg Potassium Chloride (Klor-Con 10) 40 meq PO ONETIME ONE Stop: 03/13/17 16:40 Last Admin: 03/13/17 16:59 Dose: 40 meq Potassium Chloride (Klor-Con 10) 40 meq PO ONETIME ONE Stop: 03/14/17 13:21 Last Admin: 03/14/17 13:49 Dose: 40 meq - Exam General: Reports: Alert, Oriented Lungs: Reports: Clear to Auscultation, Normal Respiratory Effort Cardiovascular: Reports: Regular Rate, Regular Rhythm Extremities: No Pedal Edema *Q Meaningful Use (DIS) - VTE *Q VTE Criteria *Q: - Stroke *Q Stroke Criteria *Q: - AMI *Q AMI Criteria *Q:
== END 2017-03-20 16:00 | disposition home or self-care (01) | DRG 861 ==
LOC: DL.MS 14:55 → UNDOADMIN 14:55 → DL.MS 16:07
PROVIDERS: ADMIT Student in an Organized Health Care Education/Training Program; ATTEND Student in an Organized Health Care Education/Training Program
DX: R53.1 Weakness (principal); E03.9 Hypothyroidism, unspecified; I95.1 Orthostatic hypotension; R51 Headache; I10 Essential (primary) hypertension; E10.43 Type 1 diabetes mellitus with diabetic autonomic (poly)neuropathy; E10.65 Type 1 diabetes mellitus with hyperglycemia; K31.84 Gastroparesis; G89.29 Other chronic pain; M54.2 Cervicalgia; Z88.1 Allergy status to other antibiotic agents; Z88.8 Allergy status to other drugs, medicaments and biological substances; Z88.0 Allergy status to penicillin; Z79.82 Long term (current) use of aspirin; Z79.4 Long term (current) use of insulin; Z79.899 Other long term (current) drug therapy
CPT/HCPCS: 36415; 80048; 82962; 85025; 97110-GO; 97110-GP; 97116-GP; 97161-GP; 97166-GO; 97530-GO; 97535-GO; A9270-GY; J1815; J1815-GY; J3480; J7030; J7050; J7060

== ENCOUNTER 2017-03-22 15:38 | Emergency (ER) | payer BC ==
[2017-03-22] MEDS ORDERED: Metoclopramide 10 MG/2 ML SDV ONE (16:40)
[2017-03-22] MEDS ORDERED: Sodium Chloride 0.9% 10 ML Syringe FLUSH PRN (16:40)
[2017-03-22] MEDS ORDERED: Sodium Chloride 0.9% 1,000 ML IV ONE ×2 (16:41→17:26)
[2017-03-22] MEDS ORDERED: Metoclopramide 10 MG/2 ML SDV IVPUSH ONE (16:42)
[2017-03-22 16:48] VITALS: BP 105/36
[2017-03-22 17:08] LABS: ANION GAP 36.5; CHLORIDE,CL 90 mmol/L (101-111); SODIUM,NA 131 mmol/L (135-145)
[2017-03-22] MEDS ORDERED: Insulin Regular, Human 100 Units/ML 3 ML Vial IV ONE ×2 (17:23→17:59)
[2017-03-22 17:36] LABS: BASE EXCESS ARTERIAL -22 mmol/L ((-2)-(+3)); BICARBONATE,ARTERIAL 5.9 mmol/L (22-26); O2 DELIVERY DEVICE NASAL CANNULA; O2 SATURATION ARTERIAL 89 % (95-100); PO2 ARTERIAL 69 mmHg (70-100)
[2017-03-22 17:39] LABS: ALLEN TEST LB; PCO2 ARTERIAL 18 mmHg (35-45)
[2017-03-22 17:40] LABS: O2 FLOW RATE 2
[2017-03-22] MEDS: Acetaminophen 325 MG Tab PO ONE ×2 (19:09→19:14)
[2017-03-22] MEDS ORDERED: Acetaminophen 650 MG Supp RECTAL STA (19:11)
[2017-03-22] MEDS ORDERED: Acetaminophen 650 MG Supp ONE (19:14)
[2017-03-22] MEDS ORDERED: Sodium Chloride 0.9% 1,000 ML IV SCH (19:45)
--- NOTE | 2017-03-22 20:49 | EDM.PDOC ---
Scribed by Jannet Engel 03/22/17 [id number] for Loni Hernandez NP ED HPI GENERAL MEDICAL PROBLEM - General Chief Complaint: General Stated Complaint: VOMITING [id number] Time Seen by Provider: 03/22/17 16:55 Source of Information: Reports: Patient, RN, RN Notes Reviewed History Limitations: Reports: No Limitations - History of Present Illness INITIAL COMMENTS - FREE TEXT/NARRATIVE: Patient presents to ER with . States did not eat supper last night. Blood sugar was 210 this morning. She did have her long acting insulin 16 units. She has not eaten at all today. She began vomiting about 0900 today. She has nausea, vomiting and left chest pain#5. She has no fever or chills. Onset: Today Duration: Getting Worse Quality: Reports: Ache Severity: Moderate Improves with: Reports: None Worsens with: Reports: None Associated Symptoms: Reports: No Other Symptoms Left Upper Chest Pain Score (Numeric/FACES): 5 - Related Data Allergies Allergy/AdvReac Type Severity Reaction Status Date / Time erythromycin base Allergy Unknown Rash Verified 03/22/17 16:51 [Erythromycin Base] azithromycin [From Zithromax] Allergy Cannot Verified 03/22/17 16:51 Remember candesartan cilexetil Allergy Dizziness Verified 03/22/17 16:51 [From Atacand] cat dander Allergy Swelling Verified 03/22/17 16:51 doxycycline Allergy Cannot Verified 03/22/17 16:51 Remember heparin Allergy Shortness Verified 03/22/17 16:51 of Breath levofloxacin [From Levaquin] Allergy Rash Verified 03/22/17 16:51 Penicillins Allergy Rash Verified 03/22/17 16:51 prochlorperazine Allergy Hallucinati Verified 03/22/17 16:51 ons prochlorperazine edisylate Allergy Hallucinati Verified 03/22/17 16:51 [From Compazine] ons prochlorperazine maleate Allergy Hallucinati Verified 03/22/17 16:51 [From Compazine] ons sumatriptan Allergy Other Verified 03/22/17 16:51 Home Meds: Home Meds Insulin Detemir [Levemir] 16 units SUBCUT BID 05/11/13 [History] Rosuvastatin Calcium [Crestor] 20 mg PO DAILY 03/12/14 [History] Aspirin [Adult Low Dose Aspirin EC] 81 mg PO DAILY 07/23/13 [History] Folic Acid 1 mg PO DAILY 08/12/15 [History] Insulin Aspart [Novolog Flexpen] 6 units SQ TIDMEALS 08/12/15 [History] Fludrocortisone [Florinef] 0.2 mg PO BRK 10/01/15 [History] Midodrine 2.5 mg PO TID 10/01/15 [History] diphenhydrAMINE [Benadryl] 25 mg PO ASDIRECTED PRN 10/01/15 [History] Fexofenadine/Pseudoephedrine [Tali-D 24 Hour Tablet] 1 tab PO DAILY PRN 05/14 [History] Glycerin/Propylene Glycol [Artificial Tears Drops] 1 drop OP DAILY 05/14/16 [ History] Levothyroxine 25 mcg PO ACBREAKFAST 05/14/16 [History] Promethazine [Phenadoz] 25 mg RECTAL Q6H PRN 05/14/16 [History] Calcitriol 0.25 mcg PO DAILY 03/09/17 [History] Gabapentin [Neurontin] 300 mg PO TID 03/09/17 [History] Non-Formulary Medication [NF Drug] 1 drop EYEBOTH DAILY 03/09/17 [History] Non-Formulary Medication [NF Drug] 2 tab PO DAILY 03/09/17 [History] Ondansetron [Zofran] 4 mg PO Q8H PRN 03/09/17 [History] Acetaminophen [Tylenol] 650 mg PO Q4H PRN tablet 03/20/17 [Rx] Clopidogrel [Plavix] 75 mg PO DAILY tablet 03/20/17 [Rx] oxyCODONE 5 mg PO Q6H PRN #22 tablet 03/20/17 [Rx] Past Medical History HEENT History: Reports: Hard of Hearing, Impaired Vision, Other (See Below) Other HEENT History: wears glasses Cardiovascular History: Reports: High Cholesterol, Other (See Below) ( orthostatic hypotension.) Other Cardiovascular History: orthostatic hypotension/alternates with hypertension Respiratory History: Reports: Asthma Gastrointestinal History: Reports: Chronic Constipation Genitourinary History: Reports: None 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: 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 Bleeding Musculoskeletal History: Reports: Fracture Other Musculoskeletal History: right ankle, right heel, little toe, big toe, both right, right wrist Neurological History: Reports: Migraines, Neuropathy, Diabetic, Other (See Below ) (weak) Psychiatric History: Reports: None Endocrine/Metabolic History: Reports: Diabetes, Type I, IDDM, Other (See Below) (recently hospitalized for ketoacidosis.) Hematologic History: Reports: None Immunologic History: Reports: None Oncologic (Cancer) History: Reports: None Dermatologic History: Reports: Psoriasis - Infectious Disease History Infectious Disease History: Reports: Chicken Pox - Past Surgical History HEENT Surgical History: Reports: Other (See Below) Female Surgical History: Reports: Section, D&C, Hysterectomy Social & Family History - Family History Family Medical History: Noncontributory - Tobacco Use Smoking Status *Q: Never Smoker Second Hand Smoke Exposure: No - Caffeine Use Caffeine Use: Reports: Coffee - Alcohol Use Days Per Week of Alcohol Use: 0 Number of Drinks Per Day: 0 Total Drinks Per Week: 0 - Recreational Drug Use Recreational Drug Use: No - Living Situation & Occupation Living situation: Reports: , with Family ED ROS GENERAL - Review of Systems Review Of Systems: ROS reveals no pertinent complaints other than HPI. ED EXAM, GENERAL - Physical Exam Exam: See Below Exam Limited By: Other ( answers questions. Patient unable.) General Appearance: Other (agitated and inattentive) Eye Exam: Bilateral Eye: Normal Inspection Ears: Normal External Exam, Normal Canal, Hearing Grossly Normal, Normal TMs Nose: Normal Inspection, Normal Mucosa, No Blood Throat/Mouth: Normal Inspection, Normal Lips, Normal Teeth, Normal Gums, Normal Oropharynx, Normal Voice, No Airway Compromise Head: Atraumatic, Normocephalic Neck: Normal Inspection, Supple, Non-Tender, Full Range of Motion Respiratory/Chest: No Respiratory Distress, Lungs Clear, Normal Breath Sounds, No Accessory Muscle Use, Chest Non-Tender Cardiovascular: Normal Peripheral Pulses, Regular Rate, Rhythm, No Edema, No Gallop, No JVD, No Murmur, No Rub GI/Abdominal: Other (nausea. Tender to palpation all over. ) (Female) Exam: Deferred Rectal (Female) Exam: Deferred Back Exam: Normal Inspection, Full Range of Motion, NT Extremities: Normal Inspection, Normal Range of Motion, Non-Tender, Normal Capillary Refill, No Pedal Edema Neurological: Other (altered mental status.) Psychiatric: Other (agitated and inattentive.) Skin Exam: Warm, Dry Lymphatic: No Adenopathy EKG INTERPRETATION EKG Date: 03/22/17 Time: 17:10 Rhythm: Other (sinus tachycardia) Rate (Beats/Min): 116 EKG Interpretation Comments: Right axis deviation. ST depression consider ischemia, anterior-lateral leads. Borderline prolonged QT interval. Course - Vital Signs Last Recorded V/S: Last Vital Signs Temp 99.1 F 03/22/17 16:35 Pulse 112 H 03/22/17 16:35 Resp 20 03/22/17 16:35 BP 105/36 L 03/22/17 16:35 Pulse Ox 99 03/22/17 16:35 - Orders/Labs/Meds Orders: Active Orders 24 hr Category Date Time Status Peripheral IV Care [RC] . DIRECTED Care 03/22/17 16:40 Active CULTURE BLOOD [BC] Stat Lab 03/22/17 16:38 Received Blood Culture x2 Reflex Set [OM.PC] Stat Oth 03/22/17 16:40 Ordered Peripheral IV Insertion Adult [OM.PC] Stat Oth 03/22/17 16:40 Ordered Labs: Laboratory Tests 03/22/17 03/22/17 03/22/17 Range/Units 16:29 16:38 16:38 WBC 18.9 H (5.0-10.0) 10^3/uL RBC 3.07 L (4.2-5.4) 10^6/uL Hgb 9.8 L (12.0-16.0) g/dL Hct 31.1 L (37.0-47.0) % MCV 101.3 H (80-100) fL MCH 31.9 (27.0-34.0) pg MCHC 31.5 L (33.0-35.0) g/dL Plt Count 421 D (150-450) 10^3/uL Neut % (Auto) 82.6 H (42.2-75.2) % Lymph % (Auto) 8.4 L (20.5-50.1) % [place] % (Auto) 8.7 H (2-8) % Eos % (Auto) 0.1 L (1.0-3.0) % Baso % (Auto) 0.2 (0.0-1.0) % Add Manual Diff Yes Neutrophils % (Manual) 80 H (42-75) % Band Neutrophils % 9 % Lymphocytes % (Manual) 5 L (20-50) % Monocytes % (Manual) 5 (2-8) % Basophils % (Manual) 1 Vacuolated Monocytes Few Platelet Estimate Adequate Macrocytosis 1+ slight [place] Bodies Few Fabian Cells 2+ moderate ABG pH (7.35-7.45) ABG pCO2 (35-45) mmHg ABG pO2 (70-100) mmHg ABG HCO3 (22-26) mmol/L ABG O2 Saturation (95-100) % ABG Base Excess ((-2)-(+3)) mmol/L Elier Test O2 Delivery Device Oxygen Flow Rate Sodium 131 L (135-145) mmol/L Potassium 4.5 (3.6-5.0) mmol/L Chloride 90 L (101-111) mmol/L Carbon Dioxide 9.0 L D (21.0-31.0) mmol/L Anion Gap 36.5 BUN 30 H (7-18) mg/dL Creatinine 1.7 H (0.6-1.3) mg/dL Est Cr Clr Drug Dosing 33.36 mL/min Estimated GFR (MDRD) 31 BUN/Creatinine Ratio 17.64 Glucose 791 H* (74-105) mg/dL POC Glucose > 500 H* (70-105) mg/dl Lactic Acid (0.5-2.2) mmol/L Calcium 8.4 (8.4-10.2) mg/dl Magnesium 1.9 (1.8-2.5) mg/dL Total Bilirubin 2.5 H (0.2-1.0) mg/dL AST 56 H (10-42) IU/L ALT 46 (10-60) IU/L Alkaline Phosphatase 95 (42-121) IU/L Troponin I 0.05 H* (0.00-0.02) ng/ml Total Protein 6.8 (6.7-8.2) g/dl Albumin 3.8 (3.2-5.5) g/dl Globulin 3.0 Albumin/Globulin Ratio 1.27 Ethyl Alcohol 10 mg/dL Ketones Positive 03/22/17 03/22/17 03/22/17 Range/Units 16:38 17:30 18:49 WBC (5.0-10.0) 10^3/uL RBC (4.2-5.4) 10^6/uL Hgb (12.0-16.0) g/dL Hct (37.0-47.0) % MCV (80-100) fL MCH (27.0-34.0) pg MCHC (33.0-35.0) g/dL Plt Count (150-450) 10^3/uL Neut % (Auto) (42.2-75.2) % Lymph % (Auto) (20.5-50.1) % [place] % (Auto) (2-8) % Eos % (Auto) (1.0-3.0) % Baso % (Auto) (0.0-1.0) % Add Manual Diff Neutrophils % (Manual) (42-75) % Band Neutrophils % % Lymphocytes % (Manual) (20-50) % Monocytes % (Manual) (2-8) % Basophils % (Manual) Vacuolated Monocytes Platelet Estimate Macrocytosis [place] Bodies [place] Cells ABG pH 7.14 L* (7.35-7.45) ABG pCO2 18 L* (35-45) mmHg ABG pO2 69 L (70-100) mmHg ABG HCO3 5.9 L (22-26) mmol/L ABG O2 Saturation 89 L (95-100) % ABG Base Excess -22 L ((-2)-(+3)) mmol/L Elier Test Lb O2 Delivery Device Nasal cannula Oxygen Flow Rate 2 Sodium (135-145) mmol/L Potassium (3.6-5.0) mmol/L Chloride (101-111) mmol/L Carbon Dioxide (21.0-31.0) mmol/L Anion Gap BUN (7-18) mg/dL Creatinine (0.6-1.3) mg/dL Est Cr Clr Drug Dosing mL/min Estimated GFR (MDRD) BUN/Creatinine Ratio Glucose (74-105) mg/dL POC Glucose > 500 H* (70-105) mg/dl Lactic Acid 5.4 H (0.5-2.2) mmol/L Calcium (8.4-10.2) mg/dl Magnesium (1.8-2.5) mg/dL Total Bilirubin (0.2-1.0) mg/dL AST (10-42) IU/L ALT (10-60) IU/L Alkaline Phosphatase (42-121) IU/L Troponin I (0.00-0.02) ng/ml Total Protein (6.7-8.2) g/dl Albumin (3.2-5.5) g/dl Globulin Albumin/Globulin Ratio Ethyl Alcohol mg/dL Ketones Meds: Medications Discontinued Medications Generic Name Dose Route Start Last Admin Trade Name Emi PRN Reason Stop Dose Admin Acetaminophen 650 mg 03/22/17 19:06 03/22/17 19:14 Tylenol PO 03/22/17 19:07 Not Given NOW ONE Acetaminophen 650 mg 03/22/17 19:11 03/22/17 19:14 Tylenol RECTAL 03/22/17 19:12 650 mg NOW STA Administration Acetaminophen Confirm 03/22/17 19:14 03/22/17 19:24 Tylenol Administered 03/22/17 19:15 Not Given Dose 650 mg .ROUTE .STK-MED ONE Sodium Chloride 1,000 mls @ 999 mls/hr 03/22/17 16:41 03/22/17 16:38 Normal Saline IV 03/22/17 17:41 999 mls/hr .BOLUS ONE Administration Insulin Human Regular 100 unit 100 mls @ 6.35 mls/hr 03/22/17 17:30 03/22/17 18:06 / Sodium Chloride IV 0.1 units/kg/hr TITRATE COOKIE 6.35 mls/hr Protocol Administration 0.1 UNITS/KG/HR Sodium Chloride 1,000 mls @ 999 mls/hr 03/22/17 17:26 03/22/17 17:55 Normal Saline IV 03/22/17 18:26 999 mls/hr .BOLUS ONE Administration Sodium Chloride 1,000 mls @ 500 mls/hr 03/22/17 19:45 03/22/17 19:15 Normal Saline IV 500 mls/hr ASDIRECTED COOKIE Administration Insulin Human Regular 6.4 unit 03/22/17 17:23 03/22/17 17:58 Humulin R IV 03/22/17 17:24 Not Given ONETIME ONE Protocol Insulin Human Regular 10 unit 03/22/17 17:59 03/22/17 18:01 Humulin R IV 03/22/17 18:00 10 units ONETIME ONE Administration Protocol Metoclopramide HCl Confirm 03/22/17 16:40 03/22/17 17:03 Reglan Administered 03/22/17 16:41 Not Given Dose 10 mg .ROUTE .STK-MED ONE Metoclopramide HCl 10 mg 03/22/17 16:42 03/22/17 16:38 Reglan IVPUSH 03/22/17 16:43 10 mg ONETIME ONE Administration Sodium Chloride 10 ml 03/22/17 16:40 Saline Flush FLUSH ASDIRECTED PRN Keep Vein Open Departure - Departure Time of Disposition: 18:42 Disposition: DC/Tfer to Acute Hospital 02 Condition: Poor, Critical Clinical Impression: DKA, type 1 Qualifiers: Diabetes mellitus complication detail: without coma Qualified Code(s): E10.10 - Type 1 diabetes mellitus with ketoacidosis without coma - Discharge Information Referrals: PCP,None [Primary Care Provider] - Forms: ED Department Discharge, Interfacility Transfer EMTALA - My Orders Last 24 Hours: My Active Orders 03/22/17 16:38 CULTURE BLOOD [BC] Stat 03/22/17 16:40 Peripheral IV Care [RC] . DIRECTED Blood Culture x2 Reflex Set [OM.PC] Stat Peripheral IV Insertion Adult [OM.PC] Stat - Assessment/Plan Last 24 Hours: My Active Orders 03/22/17 16:38 CULTURE BLOOD [BC] Stat 03/22/17 16:40 Peripheral IV Care [RC] . DIRECTED Blood Culture x2 Reflex Set [OM.PC] Stat Peripheral IV Insertion Adult [OM.PC] Stat I have read and agree with the documentation that has been completed regarding this visit. By signing this record, I attest that the documentation was completed in my physical presence and is an accurate record of the encounter.
--- NOTE | 2017-03-24 13:13 | EKG ---
03/22/2017 - LIMA VIEIRA - FINDINGS: EKG per my reading shows sinus tachycardia at the rate of 116. MODL /[id number]
== END 2017-03-22 19:36 ==
LOC: DL.ED 15:38
DX: E10.10 Type 1 diabetes mellitus with ketoacidosis without coma (principal); E10.40 Type 1 diabetes mellitus with diabetic neuropathy, unspecified; I10 Essential (primary) hypertension; E78.00 Pure hypercholesterolemia, unspecified; J45.909 Unspecified asthma, uncomplicated; Z79.4 Long term (current) use of insulin; Z79.82 Long term (current) use of aspirin; Z79.02 Long term (current) use of antithrombotics/antiplatelets; Z79.899 Other long term (current) drug therapy; Z88.0 Allergy status to penicillin; Z88.1 Allergy status to other antibiotic agents; Z88.8 Allergy status to other drugs, medicaments and biological substances; Z91.048 Other nonmedicinal substance allergy status
CPT/HCPCS: 36415; 36600; 80053; 82009; 82803; 82962; 83605; 83735; 84484; 85025; 87040; 96361; 96365; 96375; 96376; 99284; A9270; G0480; J1815; J2765; J7030

== ENCOUNTER 2017-09-13 02:20 | Emergency (ER) | payer BC ==
[2017-09-13] MEDS ORDERED: 50% Dextrose in Water 50 ML Syringe IV ONE (02:21)
[2017-09-13] MEDS ORDERED: EPINEPHrine 1:10,000 1 MG/10 ML Syringe IV ONE (02:21)
[2017-09-13] MEDS ORDERED: Sodium Bicarbonate 8.4% 50 MEQ/50 ML Syringe IV ONE (02:21)
--- NOTE | 2017-09-13 02:44 | EDM.PDOC ---
ED HPI GENERAL MEDICAL PROBLEM - General Stated Complaint: LOW BLOOD SUGAR [id number] Time Seen by Provider: 09/13/17 02:37 Source of Information: Reports: EMS, Family History Limitations: Reports: Other (cpr) - History of Present Illness INITIAL COMMENTS - FREE TEXT/NARRATIVE: EMS state arrived @ scene of pt in asysole cpr initiated with IV Rx without regaining rhythm. pt arrived in ER in asystole and cpr continued with IV Rx. cpr discontinued after no resumption of spontaneous activity. spouse states pt has DM and check her Bs @ ~ 6pm which was 66 and told her not to take any insulin and pt had no c/o at the time. then he went to bed and woke up little before he called 911 found pt not responding. total cpr time 25-30minutes with asystole. - Related Data Allergies Allergy/AdvReac Type Severity Reaction Status Date / Time erythromycin base Allergy Unknown Rash Verified 03/22/17 16:51 [Erythromycin Base] azithromycin [From Zithromax] Allergy Cannot Verified 03/22/17 16:51 Remember candesartan cilexetil Allergy Dizziness Verified 03/22/17 16:51 [From Atacand] cat dander Allergy Swelling Verified 03/22/17 16:51 doxycycline Allergy Cannot Verified 03/22/17 16:51 Remember heparin Allergy Shortness Verified 03/22/17 16:51 of Breath levofloxacin [From Levaquin] Allergy Rash Verified 03/22/17 16:51 Penicillins Allergy Rash Verified 03/22/17 16:51 prochlorperazine Allergy Hallucinati Verified 03/22/17 16:51 ons prochlorperazine edisylate Allergy Hallucinati Verified 03/22/17 16:51 [From Compazine] ons prochlorperazine maleate Allergy Hallucinati Verified 03/22/17 16:51 [From Compazine] ons sumatriptan Allergy Other Verified 03/22/17 16:51 Home Meds: Home Meds Insulin Detemir [Levemir] 16 units SUBCUT BID 05/11/13 [History] Rosuvastatin Calcium [Crestor] 20 mg PO DAILY 05/11/13 [History] Aspirin [Adult Low Dose Aspirin EC] 81 mg PO DAILY 07/23/13 [History] Folic Acid 1 mg PO DAILY 08/12/15 [History] Insulin Aspart [Novolog Flexpen] 6 units SQ TIDMEALS 08/12/15 [History] Fludrocortisone [Florinef] 0.2 mg PO BRK 10/01/15 [History] Midodrine 2.5 mg PO TID 10/01/15 [History] diphenhydrAMINE [Benadryl] 25 mg PO ASDIRECTED PRN 10/01/15 [History] Fexofenadine/Pseudoephedrine [Tali-D 24 Hour Tablet] 1 tab PO DAILY PRN 05/14 [History] Glycerin/Propylene Glycol [Artificial Tears Drops] 1 drop OP DAILY 05/14/16 [ History] Levothyroxine 25 mcg PO ACBREAKFAST 05/14/16 [History] Promethazine [Phenadoz] 25 mg RECTAL Q6H PRN 05/14/16 [History] Calcitriol 0.25 mcg PO DAILY 03/09/17 [History] Gabapentin [Neurontin] 300 mg PO TID 03/09/17 [History] Non-Formulary Medication [NF Drug] 1 drop EYEBOTH DAILY 03/09/17 [History] Non-Formulary Medication [NF Drug] 2 tab PO DAILY 03/09/17 [History] Ondansetron [Zofran] 4 mg PO Q8H PRN 03/09/17 [History] Acetaminophen [Tylenol] 650 mg PO Q4H PRN tablet 03/20/17 [Rx] Clopidogrel [Plavix] 75 mg PO DAILY tablet 03/20/17 [Rx] oxyCODONE 5 mg PO Q6H PRN #22 tablet 03/20/17 [Rx] Past Medical History HEENT History: Reports: Hard of Hearing, Impaired Vision, Other (See Below) Other HEENT History: wears glasses Cardiovascular History: Reports: High Cholesterol, Other (See Below) ( orthostatic hypotension.) Other Cardiovascular History: orthostatic hypotension/alternates with hypertension Respiratory History: Reports: Asthma Gastrointestinal History: Reports: Chronic Constipation Genitourinary History: Reports: None 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 Musculoskeletal History: Reports: Fracture Other Musculoskeletal History: right ankle, right heel, little toe, big toe, both right, right wrist Neurological History: Reports: Migraines, Neuropathy, Diabetic, Other (See Below ) (weak) Psychiatric History: Reports: None Endocrine/Metabolic History: Reports: Diabetes, Type I, IDDM, Other (See Below) (recently hospitalized for ketoacidosis.) Hematologic History: Reports: None Immunologic History: Reports: None Oncologic (Cancer) History: Reports: None Dermatologic History: Reports: Psoriasis - Infectious Disease History Infectious Disease History: Reports: Chicken Pox - Past Surgical History HEENT Surgical History: Reports: Other (See Below) Female Surgical History: Reports: Section, D&C, Hysterectomy Social & Family History - Family History Family Medical History: Noncontributory - Caffeine Use Caffeine Use: Reports: Coffee - Living Situation & Occupation Living situation: Reports: , with Family ED ROS GENERAL - Review of Systems Review Of Systems: ROS reveals no pertinent complaints other than HPI. ED EXAM, CPR - Physical Exam Exam: See Below Limited By: No Limitations General Appearance: Other (cpr) Eye Exam: Bilateral Eye: PERRL (pupils dilated fixed) Head: Atraumatic Respiratory Chest: Other (equal BS with assist) Cardiovascular: Other (asystole ) Skin Exam: Cool, Mottled Course - Orders/Labs/Meds Meds: Medications Discontinued Medications Generic Name Dose Route Start Last Admin Trade Name Jerodq PRN Reason Stop Dose Admin Dextrose/Water Confirm 09/13/17 04:24 Dextrose 50% In Water Administered 09/13/17 04:25 Dose 50 ml .ROUTE .STK-MED ONE Epinephrine HCl Confirm 09/13/17 04:24 Epinephrine 1:10,000 Administered 09/13/17 04:25 Dose 1 mg .ROUTE .STK-MED ONE Epinephrine HCl Confirm 09/13/17 04:26 Epinephrine 1:10,000 Administered 09/13/17 04:27 Dose 1 mg .ROUTE .STK-MED ONE Sodium Bicarbonate Confirm 09/13/17 04:24 Sodium Bicarbonate 8.4% Administered 09/13/17 04:25 Dose 50 meq .ROUTE .STK-MED ONE Departure - Departure Time of Disposition: 05:35 Disposition: 20 Preliminary Cause of *Q: Cardiac Arrest Condition: Undetermined Clinical Impression: Cardiopulmonary resuscitation (CPR)-only resuscitation status - Discharge Information Referrals: PCP,Unobtain [Primary Care Provider] -
[2017-09-13] MEDS ORDERED: 50% Dextrose in Water 50 ML Syringe ONE (04:24)
[2017-09-13] MEDS ORDERED: EPINEPHrine 1:10,000 1 MG/10 ML Syringe ONE ×2 (04:24→04:26)
[2017-09-13] MEDS ORDERED: Sodium Bicarbonate 8.4% 50 MEQ/50 ML Syringe ONE (04:24)
== END 2017-09-13 05:55 | disposition expired ==
LOC: DL.ED 02:20
DX: I46.9 Cardiac arrest, cause unspecified (principal); E78.00 Pure hypercholesterolemia, unspecified; E11.40 Type 2 diabetes mellitus with diabetic neuropathy, unspecified; J45.909 Unspecified asthma, uncomplicated; Z79.4 Long term (current) use of insulin; Z79.899 Other long term (current) drug therapy; Z79.82 Long term (current) use of aspirin; Z88.8 Allergy status to other drugs, medicaments and biological substances; Z88.0 Allergy status to penicillin; Z88.1 Allergy status to other antibiotic agents; Z91.09 Other allergy status, other than to drugs and biological substances
CPT/HCPCS: 92950; 96374; 96375; 99285; J0171; J7060